=== PATIENT | male | born 1950 | race African-American/Black ===

== ENCOUNTER 2019-01-08 18:56 | Inpatient (IN) | payer OTHER ==
[~2019-01-08] VITALS: Ht 182.9 cm; Wt 144.7 kg
[2019-01-08 19:02] VITALS: BP 136/85
[2019-01-08 20:01] LABS: ABSOLUTE NEUTROPHILS 10.7 thou/uL (1.4-8.2); BASOPHILS 0.9 % (0.0-2.0); EOSINOPHILS 0.9 % (0.0-3.0); HEMATOCRIT 42.3 % (42.0-52.0); HEMOGLOBIN 13.5 gm/dL (14.0-18.0); LYMPHOCYTES 10.9 % (24.0-44.0); MCH 27.9 pg (26.0-34.0); MCHC 31.8 g/dL (28.0-37.0); MCV 87.8 fL (80.0-100.0); PLATELET COUNT 396 thou/uL (150-400); POLYS 78.3 % (36.0-66.0); RBC 4.82 mil/uL (4.50-6.00); RDW 15.6 % (10.5-14.5); WBC 13.7 thou/uL (4.0-11.0)
[2019-01-08 20:07] LABS: CALCIUM 9.5 mg/dL (8.5-10.1); CREATININE 1.3 mg/dL (0.7-1.3); POTASSIUM 3.5 mmol/L (3.5-5.1)
[2019-01-08 20:12] LABS: ALBUMIN 3.6 g/dL (3.4-5.0); DIRECT BILIRUBIN 0.2 mg/dL (<0.1-0.3); TOTAL BILIRUBIN 0.5 mg/dL (<0.1-1.0); TOTAL PROTEIN 7.6 g/dL (6.4-8.2)
[2019-01-08 21:10] LABS: URINE BILIRUBIN NEGATIVE (Negative); URINE BLOOD NEGATIVE (Negative); URINE CLARITY CLEAR; URINE COLOR YELLOW; URINE GLUCOSE-RANDOM* NEGATIVE (Negative); URINE KETONES NEGATIVE (Negative); URINE LEUKOCYTES-REFLEX NEGATIVE (Negative); URINE NITRITE-REFLEX NEGATIVE (Negative); URINE PROTEIN (DIPSTICK) NEGATIVE (Negative); URINE SPECIFIC GRAVITY <= 1.005 (1.005-1.035); URINE UROBILINOGEN 0.2 E.U./dl (0.2-1.0)
[2019-01-09 00:55] VITALS: BP 121/80
[2019-01-09 01:05] VITALS: BP 132/82
[2019-01-09 01:56] VITALS: BP 136/87
[2019-01-09] MEDS ORDERED: ALLOPURINOL 10100 M3 (03:41)
[2019-01-09] MEDS ORDERED: METFORMIN HCL500 M3 PO (03:43)
[2019-01-09] MEDS ORDERED: GLIPIZIDE 10 MG10 MG PO (03:45)
[2019-01-09] MEDS ORDERED: PRAVASTATIN SOD80 MG PO (03:51)
[2019-01-09] MEDS ORDERED: IRON325 M1 PO (03:53)
[2019-01-09] MEDS ORDERED: NORVASC 2.5 MG2.5 M1 PO (03:57)
[2019-01-09] MEDS ORDERED: TORSEMIDE20 MG PO (04:01)
[2019-01-09] MEDS ORDERED: CARVEDILOL12.5 MG PO (04:03)
[2019-01-09] MEDS ORDERED: OMEPRAZOLE40 MG (04:04)
[2019-01-09] MEDS ORDERED: LISINOPRIL2.5 MG PO (04:06)
--- NOTE | 2019-01-09 05:28 | NUR ---
PATIENT ARRIVED ON UNIT AT 0140 VIA CART FROM THE ED ACCOMPANIED BY ED PERSONEL. PATIENT ALERT AND ORIENTED X4. C/O PAIN. MED GIVEN. SLEPT LITTLE THIS SHIFT. UP TO BATHROOM W/O TROUBLE.
[2019-01-09 05:50] LABS: HEMATOCRIT 45.4 % (42.0-52.0); HEMOGLOBIN 13.8 gm/dL (14.0-18.0); MCH 27.2 pg (26.0-34.0); MCHC 30.4 g/dL (28.0-37.0); MCV 89.3 fL (80.0-100.0); RBC 5.08 mil/uL (4.50-6.00); RDW 15.7 % (10.5-14.5); WBC 14.5 thou/uL (4.0-11.0)
[2019-01-09 06:14] LABS: ALBUMIN 3.5 g/dL (3.4-5.0); CALCIUM 9.2 mg/dL (8.5-10.1); CREATININE 1.3 mg/dL (0.7-1.3); POTASSIUM 3.3 mmol/L (3.5-5.1); TOTAL BILIRUBIN 0.6 mg/dL (<0.1-1.0); TOTAL PROTEIN 7.5 g/dL (6.4-8.2)
[2019-01-09 07:47] VITALS: BP 140/81
--- NOTE | 2019-01-09 15:50 | NUR ---
INITIAL ASSESSMENT: Pt evaluated for d/c planning needs. Reviewed chart and spoke with nurse and pt. Pt is alert and oriented. Pt lives in house with son and was independent with ADL's. Pt has cane, but does not use. Pt has not had home health in the past. Pt plans on returning home on d/c from hospital. Will remain available to assist as needed.
[2019-01-09 16:59] VITALS: BP 102/66
--- NOTE | 2019-01-09 17:54 | NUR ---
ASSUMED CARE AROUND 0730. AXOX3. PERSISTENT ABDOMINAL PAIN. PAIN AND LOW POTASSIUM ADDRESSED TO AND MEW ORDERS RECEIVED. NO S/S ACUTE DISTRESS NOTED OR REPORTED AT THIS TIME. WILL CONT TO MONITOR FOR ANY CHANGES IN CONDITION.
[2019-01-10 04:00] VITALS: BP 111/61
--- NOTE | 2019-01-10 04:31 | NUR ---
PATIENT ALERT AND ORIENTED X4. SOME RESTLESNESS WITH PAIN. MEDICATED X2 DURING THE NIGHT AND PATIENT ABLE TO SLEEP. VOIDING PER URINAL. BS MONITORED PER ORDER. 02NC 3L HOWEVER, PATIENT REMOVES IT AT TIMES. WILL MONITOR. RESTING QUIETLY.
[2019-01-10 08:05] VITALS: BP 104/65
[2019-01-10 08:44] LABS: CALCIUM 8.8 mg/dL (8.5-10.1); CREATININE 1.5 mg/dL (0.7-1.3); POTASSIUM 3.7 mmol/L (3.5-5.1)
[2019-01-10 19:18] VITALS: BP 121/76
--- NOTE | 2019-01-10 19:51 | NUR ---
ASSUMED CARE OF PATIENT AT 0715, PATIENT ALERT AND ORIENTED X 4. PATIENT UP AD BRIGID IN HIS ROOM. PATIENT HAS C/O PAIN ALL DAY. THIS RN NOTIFIED DR NAPIER OF PATIENT PAIN NOT RELIEVED, HE STATED HE WAS NOT GOING TO ORDER MORE PAIN MEDS DUE TO NOT KNOWING WHAT IS CAUSING HIS PAIN, PATIENT HAS RECEIVED MORPHINE 4 MG IV AND OXYCODONE 2 TABLETS THIS SHIFT. THIS RN NOTIFIED DR NAPIER AGAIN DUE TO PATIENT STATING HE WAS GOING TO PASS OUT, RECEIVED ORDER TO DO CT SCAN OF ABD/PELVIS TO R/O RENAL STONES. PATIENT C/O NAUSEA AT DINNER TIME, ZOFRAN 4MG IV GIVEN, PATIENT HAS LEFT FOREARM IV IN PLACE, RECEIVE 1 IV ANTIBIOTIC THIS SHIFT. PATIENT VOIDS PER URINAL. NO BM THIS SHIFT. O2 AT 2 LITERS/NC IN PLACE, BUT PATIENT HAS TAKEN OFF AND THEN LABORED BREATHING NOTED, THIS RN INSTRUCTED PATIENT TO CONTINUE TO WEAR O2 AT ALL TIMES, HE VOICED UNDERSTANDING. THIS RN TOOK PATIENT DOWN AT [address] SCAN OF ABDOMEN/PELVIS. PATIENT REFUSED BATH THIS SHIFT, STATES HE TAKES HIS BATH AT NIGHT, BED LINEN CHANGED THIS SHIFT. ALSO NOTIFIED DR NAPIER OF PATIENT NEEDING NICOTINE PATCH, RECEIVED ORDER FOR NICOTINE PATCH 14MG WILL START IN AM. WILL CONTINUE TO MONITOR.
--- NOTE | 2019-01-11 02:35 | NUR ---
ASSUMED CARE OF PT @ 1900 PT SITTING UP IIN CHAIR. A&OX4 GOING FOR A CT DUE TO C/O. PT BACK FROM CT, PAIN MEDS GIVEN MORPINE AND OXYCODONE DURING THIS MATERIAL CUTTER SEE EMAR. BS CHECKED. PT DIDNT EAT DINNER TRAY DUE TO NO APPETITE AT THAT TIME. SANDWICH TRAY GIVEN LATER AT NIGHT AND PT EVA IT WELL. ON NC 3L OF O2. BIPAP ON AT NIGHT BUT REQUESTED TO BE OFF TONIGHT. WILL CONT WITH POC TILL EOS.
[2019-01-11 09:12] VITALS: BP 96/56
--- NOTE | 2019-01-11 12:16 | NUR ---
Assumed care of pt at 0700. Pt alert and oriented x4. On 4L O2. Wears C-pap at night. Upa d anderson. Pain controlled with prn pain meds. Antiemetic administered. IV antibiotics infusing. Call light within reach. Will continue to monitor.
--- NOTE | 2019-01-11 17:29 | NUR ---
ASSUMED CARE AT 1300. WENT FOR CT SCAN THIS AFTERNOON. REPORTED PAIN, PRN OXYCODONE GIVEN. FLUIDS STARTED, OXYGEN SATURATION WAS 93% ON ROOM AIR, SO KEPT ON RA. WILL COTINUE TO ASSESS AND ASSIST WITH ADLs NEEDED.
[2019-01-11 17:36] VITALS: BP 120/78
[2019-01-11 20:04] VITALS: BP 95/55
--- NOTE | 2019-01-12 04:12 | NUR ---
ASSSUMED CARE OF PT @1900 PT ASSESSED AT START OF SHIFT A&OX4. FLUIDS INFUSING PT ON RM/A O2 SAT ON PROBE IN THE 8O'S. PT PLACED ON 4L OF O2 AND CPAP PLACED ON. HOUSE SUP PRESENT, THIS NURSE CALLED SHIPYARD PAINTING SUPERVISOR FOR ORDERED DOSE OF XRAY DUE TO HISTORY OF COPD AND PT NOT ON O2 AT HOME. STAT XRAY ORDERED AND BX SCHEDULED. RESULT READ BACK TO SHIPYARD PAINTING SUPERVISOR PULMONARY EDEMA NOTED. FLUIDS STOPED AND ONETIME DOSE OF LASIX GIVEN. PAIN MEDS GIVEN FOR CONTROLLED PAIN. PT STABLE AND O2 SAT @98% ON NC 4L. WILL CONT TO MONITOR TILL EOS.
[2019-01-12 05:00] VITALS: BP 146/83
[2019-01-12 08:56] VITALS: BP 112/75
[2019-01-12 12:19] LABS: CREATININE 1.1 mg/dL (0.7-1.3); POTASSIUM 4.2 mmol/L (3.5-5.1)
[2019-01-12 16:27] VITALS: BP 117/71
--- NOTE | 2019-01-12 18:53 | NUR ---
PATIENT TO NUCLEAR MED VIA W/C FOR RENAL SCAN.
--- NOTE | 2019-01-12 18:54 | NUR ---
PATIENT UP TO CHAIR AFTER RETURNING FROM NUCLEAR MED, STAYED UP FOR DINNER AND RETURNED TO BED WITH CPAP IN PLACE. STATES THAT HE IS BREATHING BETTER. PAIN INITIALLY A 5/10 BUT NOW 7-8/10 GIVEN MORPHINE AND PERCOCET WITH MIN RELIEF. PATIENT AND FAMILY UPDATED TO POC AND REASSURANCE GIVEN. VERBALIZE UNDERSTANDING.
[2019-01-12 19:17] VITALS: BP 112/77
[2019-01-13 04:22] VITALS: BP 99/78
--- NOTE | 2019-01-13 05:28 | NUR ---
ASSUMED PT CARE ON 01/12/19. PT HAS COMPLAINTS OF FLANK PAIN. PT PREFERS PAIN MEDS RIGHT BEFORE BED. PT HAS BEEN UP WALKING AND USING THE URINAL. PT SLEEP LATER IN THE SHIFT. PT USES CPAP AT NIGHT.
[2019-01-13 06:22] LABS: HEMATOCRIT 37.6 % (42.0-52.0); HEMOGLOBIN 11.7 gm/dL (14.0-18.0); MCH 27.9 pg (26.0-34.0); MCHC 31.1 g/dL (28.0-37.0); MCV 89.9 fL (80.0-100.0); RBC 4.19 mil/uL (4.50-6.00); RDW 16.2 % (10.5-14.5); WBC 8.4 thou/uL (4.0-11.0)
[2019-01-13 06:40] LABS: CALCIUM 9.6 mg/dL (8.5-10.1); POTASSIUM 4.8 mmol/L (3.5-5.1)
[2019-01-13 07:00] VITALS: BP 140/89
--- NOTE | 2019-01-13 10:51 | NUR ---
Assess due to high BMI 42.8=extreme obesity. Admit with abdominal pain. Eating 50-90% meals. Hx DM, BG 112-150. Renal following. Pt out of room at time of visit. Based on chart review, low nutrition risk. Available for diet education if pt has questions or concerns.
--- NOTE | 2019-01-13 11:43 | 2DMMODE ---
[facility] [address] [place] [address] 2 D/M-MODE ECHOCARDIOGRAM Name: TRISH LEE Room #: 441-P ADM IN ..#: [id number] Admission: 01/09/19 Attend Phys: Jose E Gaxiola MD Discharge: Date of : 54 Report #: [id number] THIS REPORT FOR: //name// APPROVED REPORT Study performed: 01/13/2019 10:31:52 EXAM: Comprehensive 2D, Doppler, and color-flow Echocardiogram Patient Location: Echo lab Room #: [facility] Status: routine BSA: 2.59 HR: 83 bpm BP: 140/89 mmHg Rhythm: Atrial Fibrillation Other Information Study Quality: Adequate Technically limited study due to body habitus. Indications Question source of emboli. Valve source. Renal infarct. Hx: CHF, COPD, HTN, HLP, DM Echo Enhancing Agent Indication: Endocardial border delineation and Rule out shut. Agent(s) / Amount(s) Used: Agitated Saline X2 12 cc Optison 5 cc 2D Dimensions RVDd: 51.05 mm IVSd: 12.00 (7-11mm) LVOT Diam: 25.17 (18-24mm) LVDd: 63.00 mm PWd: 12.00 (7-11mm) Ascending Ao: 43.09 (22-36mm) LVDs: 54.03 (25-40mm) Aortic Root: 39.86 mm Volumes Left Atrial Volume (Systole) Single Plane 4CH: 121.32 mL Single Plane 2CH: 125.81 mL LA ESV Index: 50.00 mL/m2 Aortic Valve AoV Peak Emanuel.: 1.24 m/s [facility] [place] [address] 2 D/M-MODE ECHOCARDIOGRAM Name: TRISH LEE Room #: 441-P ADM IN ..#: [id number] Admission: 01/09/19 Attend Phys: Jose E Gaxiola MD Discharge: Date of : 54 Report #: [id number] AO Peak Gr.: 6.16 mmHg LVOT Max P.63 mmHg LVOT Max V: 0.95 m/s RODNEY Vmax: 3.80 cm2 Mitral Valve MV Decel. Time: 135.75 ms MV E Max Emanuel.: 1.28 m/s Pulmonary Valve PV Peak Emanuel.: 0.64 m/s PV Peak Gr.: 1.62 mmHg Tricuspid Valve TR Peak Emanuel.: 3.30 m/s RAP Estimate: 15.00 mmHg TR Peak Gr.: 43.00 mmHg PA Pressure: 58.00 mmHg Left Ventricle Left ventricle is moderately dilated. Regional wall motion is not well visualized. Mild concentric left ventricular hypertrophy. Left ventricular systolic function is moderately decreased. LVEF 40%. This study is not technically sufficient to allow evaluation of the LV diastolic function due to atrial fibrillation. Right Ventricle Right ventricle is not well visualized but appears dilated and mildly hypokinetic. Atria Left atrium is severely dilated. No shunting noted by contrast bubble injection. Right atrium is moderately dilated. Aortic Valve The aortic valve is mildly calcified. Mild to moderate aortic regurgitation. There is no aortic valvular stenosis. Mitral Valve Moderate mitral annular calcification. Moderate mitral regurgitation. No evidence of mitral valve stenosis. Tricuspid Valve Tricuspid valve is not well visualized but appears grossly normal. Mild tricuspid regurgitation. Estimated PAP is 55 mmHg. Pulmonic Valve Pulmonic valve is not well visualized. Mild pulmonic regurgitation. [facility] [address] [place] [address] 2 D/M-MODE ECHOCARDIOGRAM Name: TRISH LEE Room #: 441-P [facility] IN .R.#: [id number] Admission: 01/09/19 Attend Phys: Jose E Gaxiola MD Discharge: Date of : 54 Report #: [id number] [place]els Aortic root is mildly dilated. Ascending aorta is dilated (4.3cm). IVC is dilated and collapses <50% with inspiration. Pericardium There is no pericardial effusion. <Conclusion> Technically difficult study Left ventricular systolic function is moderately decreased. LVEF 40%. Both atria are dilated. No shunting noted by contrast bubble injection. The aortic valve is mildly calcified. Mild to moderate aortic regurgitation. Moderate mitral annular calcification. Moderate mitral regurgitation. Mild tricuspid regurgitation. Estimated pulmonary artery pressure of 55 mmHg. Ascending aorta is dilated (4.3cm). There is no pericardial effusion. <ELECTRONICALLY SIGNED> By: Lisandro Zepeda MD, FACC 01/13/19 1143 1143 1143 Lisandro Zepeda MD, FACC /INF
[2019-01-13 16:32] VITALS: BP 116/71
--- NOTE | 2019-01-13 16:44 | NUR ---
RECEIVED PHONE CALL FROM PT'S SON WHO HE LIVES WITH HIS DAD ASKING FOR A LETTER FROM THE DR THAT WOULD ALLOW HIM TO EXTRACT OPERATOR. WILL DISCUSS THIS WITH DR RICARDO TO SEE IF SHE WOULD BE WILLING TO DO THIS.
[2019-01-13 19:15] VITALS: BP 110/57
--- NOTE | 2019-01-13 20:33 | NUR ---
Assumed care of pt at 0700. Pt a&ox4. Up ad anderson. Pain controlled with prn pain meds. Cpap at night. Pt states he is feeling better. Call light within reach. Pt calls appropriately. Report given to yonatan HESS.
--- NOTE | 2019-01-14 01:36 | NUR ---
ASSESSMENT COMPLETED. PT IS ALERT AND ORIENTED.UP AD BRIGID. USING CPAP AT NOC WITH 02/4L/NOC. STILL C/O L FLANK PAIN-ALTERNATING BETWEEN OXYCODONE AND IV MORPHINE.PT CONTINUES ON STEROIDS.WILL CONTINUE WITH POC TILL EOS.
--- NOTE | 2019-01-14 07:51 | HC ---
[facility] [place] [address] CONSULTATION Name: TRISH LEE Room #: 441-P [facility] IN ..#: [id number] Admission: 01/09/19 Attend Phys: Jose E Gaxiola MD Discharge: Date of : 54 Report #: [id number] THIS REPORT FOR: //name// CC: Tahir Ritchie DO Jose E Gaxiola MD REASON FOR CONSULTATION: Right renal infarct, age indeterminate. HISTORY OF PRESENT ILLNESS: The patient is a very pleasant 68-year-old gentleman, who moved here from [place] in 05/2018. He was admitted for right middle lateral abdominal pain began 2 days prior to admission, described as sharp and rated a 9/10. Also, had had emesis. He had seen his PCP the week before. He had not had this difficulty before. Per other notes and discussion, he denied back pain, diarrhea, fever, shortness of breath, chest pain, or urinary frequency. I do note the patient was in the hospital at [facility], not too recently with obvious fairly significant GI bleed with bright red blood. Per his description, it sounds like they did an upper and lower endoscopy and also pill camera studies without finding a bleeding source. They told him he would likely need to have a bleeding scan done if he bled again to determine the source. It sounded like the surgery, but the bleeding stopped. Here, the patient had a CT abdomen with a question of a possible infarct in right renal cortex of the lower pole. UA was unremarkable for red cells and Dr. Reyes of Nephrology thought this was likely an old change, not a recent change. We were consulted because of hypercoag workup. 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 SOCIAL HISTORY: History of marijuana use, there may be a question of cocaine use in the past, also current every day smoker. 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 He has family here in town. MEDICATIONS: At home had included allopurinol, metformin, glipizide, pravastatin, iron, amlodipine, torsemide, carvedilol, omeprazole, lisinopril. Here in the hospital, his recent medications include atorvastatin 40 at bedtime, ipratropium respiratory therapy q.4 hours while awake, methylprednisolone 62.5 IV b.i.d., carvedilol 3.125 b.i.d., nicotine patch 14 mg daily, pantoprazole 40 at bedtime, electrolyte replacement program, iron sulfate 325 daily, heparin 5000 units b.i.d., Senokot-S 2 tabs b.i.d., insulin on a sliding scale basis, morphine p.r.n., MiraLax p.r.n. [address] [address] CONSULTATION Name: TRISH LEE Room #: 441-P [facility] IN M.R.#: [id number] Admission: 01/09/19 Attend Phys: Jose E Gaxiola MD Discharge: Date of : 54 Report #: [id number] PHYSICAL EXAMINATION: GENERAL: The patient appears his stated age. VITAL SIGNS: His height is 5 feet 11 or 6 feet which is 180 or 183 cm. Weight is 316 pounds, which is 143.3 kilograms. Blood pressure is 140/89, O2 sat 95%, respirations 18, pulse , afebrile. MOOD: The patient is alert and pleasant, conversant. NEUROLOGIC: Speech and thought pattern normal. Moving all extremities. LUNGS: Appear to be clear to auscultation though slightly distant. HEART: Regular rate. LYMPHATICS: No enlarged lymph nodes in the supraclavicular, cervical, axillary region. SKIN: Dry and intact. ABDOMEN: Obese. No organomegaly. BACK: No significant pain on percussion. EXTREMITIES: There may be some trace edema, not much. ASSESSMENT AND PLAN: 1. Right renal infarct, age indeterminate, may be related to and also could be related to possible other medications in the past. We will do hypercoag workup including protein C, protein S, factor V Leiden, prothrombin gene mutation, cardiolipin antibodies, beta 2 glycoprotein antibodies, and lupus anticoagulant panel. We will need to be very careful given the patient's gastrointestinal bleed history about any anticoagulation. We would hope that if ____ may be provoked and could be related to , strongly encouraged to stop. We will also check echocardiogram. 2. Tobacco use. Encouraged cessation. 3. History of recent gastrointestinal bleed. Defer to others. 4. Chronic obstructive pulmonary disease, steroids and aerosols per others. 5. Diabetes. Management per others including oral agents and insulin. 6. Questionable heart failure. Defer to others. 7. Obstructive sleep apnea, CPAP per others. 8. Hyperlipidemia. Meds per others. We will follow. <ELECTRONICALLY SIGNED> By: Diony Moore MD 01/14/19 0751 [id number] 2038 Diony Moore MD /leanna
[2019-01-14 08:14] VITALS: BP 156/101
[2019-01-14 09:27] LABS: CALCIUM 10.4 mg/dL (8.5-10.1); POTASSIUM 5.3 mmol/L (3.5-5.1)
[2019-01-14 13:13] LABS: HEMATOCRIT 41.3 % (42.0-52.0); HEMOGLOBIN 12.7 gm/dL (14.0-18.0); MCHC 30.8 g/dL (28.0-37.0)
[2019-01-14 13:18] LABS: MCH 27.6 pg (26.0-34.0); MCV 89.6 fL (80.0-100.0); RBC 4.61 mil/uL (4.50-6.00); RDW 16.4 % (10.5-14.5); WBC 15.4 thou/uL (4.0-11.0)
[2019-01-14 14:00] LABS: ABSOLUTE NEUTROPHILS 14.5 thou/uL (1.4-8.2)
[2019-01-14 14:01] LABS: ANISOCYTOSIS 1+; PLATELET COUNT 469 thou/uL (150-400)
--- NOTE | 2019-01-14 14:42 | NUR ---
Pt on 4 liters of o2 and does not have it at home. Cardiology consult pending. Renal and Hem/Onc following. Dc timeframe uncertain. Will follow for possible home o2 at dc. Pt up ad anderson in his room.
--- NOTE | 2019-01-14 15:56 | NUR ---
RECEIVED CALL FROM PT'S SON ASKING TO SEE IF THE DR WOULD WRITE A LETTER ALLOWING HIM TO MORTGAGE LOAN COMPUTATION CLERK SO THAT HE COULD BE THERE TO MONITOR PT'S DIET, MEDS AND IF ANY EMERGENCIES AROSE HE WOULD BE IN A CLOSER PROXIMITY TO ASSIST. HE WOULD BE ABLE TO HELP WITH DECISION MAKING. DR RICARDO DOES NOT FEEL COMFORTABLE DOING THIS & REQUESTS THAT SON FOLLOW-UP WITH PT'S PCP. MESSAGE LEFT TO INFORM SON.
[2019-01-14 16:25] VITALS: BP 137/77
--- NOTE | 2019-01-14 18:13 | NUR ---
ASSUMED CARE OF PT AT 0700. PT COMPLIANED OF LEFT EYE PAIN AND THE INABILITY TO SEE CLEARLY OUT OF THE L EYE. PT IS ON 4.0 LITERS OF O2. PER DOCTOR PT TRANSFERED TO CCU FOR CARDIOLOGY. FALL PRECAUTIONS IN PLACE. BED IN LOWEST POSITION AND CALL LIGHT WITHIN REACH. WILL CONTINUE TO MONITOR THE PT.
--- NOTE | 2019-01-14 18:35 | NUR ---
Pt continuing to report pain in this left eye. Call placed to Dr Gee and orders received. Warm moist cloth to left eye for comfort. Also reports blurred vision left eye and discomfort right lower quadrant of abdoment.
[2019-01-14 19:56] VITALS: BP 142/89
[2019-01-15 00:06] VITALS: BP 133/86
[2019-01-15 04:36] VITALS: BP 146/96
[2019-01-15 05:49] LABS: CALCIUM 9.7 mg/dL (8.5-10.1); CREATININE 1.1 mg/dL (0.7-1.3); POTASSIUM 5.1 mmol/L (3.5-5.1)
[2019-01-15 05:55] LABS: % SATURATION 10 % (20-39); IRON 37 ug/dL (65-175); TIBC 354 ug/dL (250-450)
--- NOTE | 2019-01-15 07:09 | NUR ---
ASSUMED PT CARE AT 1900. VSS. PT A&0X4. COMPLAINED OF PAIN IN RLQ AND EYES, PAIN MED GIVEN PER MAR. PT'S HR IS USUALLY UNDER 100 WHEN HE IS RESTING OR LAYING DOWN IN BED. HOWVER, WHEN HE GETS UP TO USE THE URINAL, HE CAN GET UP TO 160s. SEE GRAPHICS IN CHART. PT IS STILL IN AFIB ON THE MONITOR. HOWEVER PT IS ASYMPTOMATIC. STABLE, NO FURTHER COMPLAINTS THROUGH THE NIGHT, WILL CONTINUE TO MONITOR PER POC.
[2019-01-15 07:45] VITALS: BP 133/77
--- NOTE | 2019-01-15 08:34 | EKG ---
[address] [place] [address] ELECTROCARDIOGRAM REPORT Name: TRISH LEE Room #: 214-P ADM IN M.R.#: [id number] Admission: 01/09/19 Attend Phys: Jose E Gaxiola MD Discharge: Date of : 54 Report #: [id number] THIS REPORT FOR: //name// [facility] Test Date: 2019-01-14 Test Time: 09:26:09 Pat Name: TRISH LEE Department: Room: 214 Gender: M Client Service Professional: Home MATA : 1950 Requested By: Kristine Santana Order Number: [id number] MD: Lisandro Zepeda Measurements Intervals [place] Rate: 93 P: RI: QRS: -44 QRSD: 133 T: 112 QT: 384 QTc: 478 Interpretive Statements Atrial fibrillation Ventricular premature complex Left bundle branch block No previous ECG available for comparison Electronically Signed On 01-15-2019 8:34:03 CDT by Lisandro Zepeda [email or web address] <ELECTRONICALLY SIGNED> By: Lisandro Zepeda MD, [facility] 01/15/19 0834 5 Lisandro Zepeda MD, FACC /EPI
[2019-01-15 12:11] VITALS: BP 146/97
[2019-01-15 16:28] VITALS: BP 131/72
--- NOTE | 2019-01-15 17:01 | NUR ---
ASSUMED CARE PT AT SHIFT CHANGE. ASSESSMENTS CHARTED. MEDS GIVEN PER MAY. PT ALERT AND ORIENTED, VSS, UP WITH SUPERVISION TOLERATING WELL. O2 SATS WNL ON 2L O2. HR ELEVATED WITH ACTIVITY--CARDIOLOGY AWARE. LASIX ORDERED AND PT EXPRESSES THAT HE IS BREATHING BETTER. DIURESING APPROPRIATELY. NO C/O PAIN, DENIES NEEDS AT THIS TIME. WILL CONT TO MONITOR.
[2019-01-15 20:00] VITALS: BP 162/87
[2019-01-16 00:10] VITALS: BP 116/67
[2019-01-16 02:30] VITALS: BP 126/74
--- NOTE | 2019-01-16 05:17 | NUR ---
SHIFT NOTE: PATIENT ALERT AND ORIENTED AND ABLE TO COMMUNICATE NEEDS. DENIES PAIN OR DISCOMFORT. C-PAP AT BEDTIME. CONCERN WITH BLOOD SUGAR IN THE 70'S AND TREATMENT PER THE ORDER WITH EFFECT. VITAL SIGN WITH NO MAJOR CONCERN. HOURLY ROUNDING. CALL LIGHT AND PERSONAL ITEMS WITHIN REACH. WILL CONTINUE WITH CURRENT POC AND TO MONITOR.
[2019-01-16 08:17] VITALS: BP 137/86
[2019-01-16] MEDS ORDERED: NICOTINE TRANSD14 M1 TRANSDERM (12:24)
[2019-01-16] MEDS ORDERED: BENICAR40 MG PO (12:24)
[2019-01-16] MEDS ORDERED: CARVEDILOL12.5 MG PO (12:24)
[2019-01-16] MEDS ORDERED: PROAIR HFA8.5 GM INH (12:24)
[2019-01-16] MEDS ORDERED: MIRALAX17 GM PO (12:24)
[2019-01-16] MEDS ORDERED: PERCOCET 5-3251 EACH PO (12:24)
[2019-01-16] MEDS ORDERED: ACETAMINOPHEN325 M1 PO (12:24)
[2019-01-16] MEDS ORDERED: GLIPIZIDE 10 MG10 MG PO (12:55)
[2019-01-16 13:16] VITALS: BP 137/86
[2019-01-16 14:44] VITALS: BP 137/86
--- NOTE | 2019-01-16 14:44 | NUR ---
PT CARE ASSUMED APPROX 0700. ASSESSMENTS CHARTED. PT DENIES PAIN AND SOA. VSS. UP WITH STEADY GAIT. O2 SAT HAS MAINTAINED WITH EXERTION AND EXERCISE. PT TO DISCHARGE AT THIS TIME. DISCHARGE EDUCATION DONE WITH PT. HE DENIES QUESTIONS OR CONCERNS REGARDING POST HOSPITAL CARES AND F/U. BELONGINGS IN PT POSSESSION. IV OUT, TELE BOX OFF. HOSPITAL STAFF TO ESCORT PT OUT TIMELY.
--- NOTE | 2019-01-16 14:53 | NUR ---
Pt dcing home today. Weaned off o2 and ex sats are wnl. HH RN and PT abdirahman recommended. Pt is agreeable and denies agency preference. Referral called and faxed to [facility] for start of care this weekend. Pt's son taking him home this afternoon. Care team updated.
--- NOTE | 2019-01-22 07:41 | HC ---
[facility] [place] [address] CONSULTATION Name: TRISH LEE Room #: 214-P [facility] IN ..#: [id number] Admission: 01/09/19 Attend Phys: Jose E Gaxiola MD Discharge: 01/16/19 Date of : 54 Report #: [id number] THIS REPORT FOR: //name// CC: Alexandre Gaxiola REASON FOR CONSULTATION: Potential renal infarct. HISTORY OF PRESENT ILLNESS: This is a 68-year-old with extensive past medical history including diabetes mellitus, hypertension, hyperlipidemia and COPD. He presented with diffuse abdominal pain for 2 days. This was associated with emesis. The patient also reported to some nausea. No hematuria. No fever. No previous similar episodes. CT showed an abnormal appearance of the right lower pole of the kidney. Abdominal ultrasound was nonconclusive. Repeat CT angiogram showed a potential mid to inferior lesion of the right kidney consistent with a renal infarct. The patient's creatinine on presentation was within normal range. He had a completely clear urinalysis. He does not recall any previous similar events. He does not recall any family history of hypercoagulable condition. PAST MEDICAL HISTORY: 1. Hypertension. 2. Hyperlipidemia. 3. Diabetes mellitus. 4. Chronic obstructive pulmonary disease. 5. Lower gastrointestinal bleeding. SOCIAL HISTORY: He uses marijuana. He also smokes cigarettes. ALLERGIES: None. MEDICATIONS: 1. Glipizide. 2. Metformin. 3. Torsemide. 4. Carvedilol. 5. Omeprazole. 6. Lisinopril. REVIEW OF SYSTEMS: GENERAL: No fever or chills. CARDIOVASCULAR: No chest pain or palpitation. PULMONARY: No cough or hemoptysis. GASTROINTESTINAL: No nausea or vomiting. GENITOURINARY: No frequency, no urgency. PHYSICAL EXAMINATION: [facility] [address] [place] [address] CONSULTATION Name: TRISH LEE Room #: 214-P [facility] IN [facility].#: [id number] Admission: 01/09/19 Attend Phys: Jose E Gaxiola MD Discharge: 01/16/19 Date of : 54 Report #: [id number] GENERAL: He is alert and oriented, in no apparent distress. VITAL SIGNS: Pulse rate is 95, temperature is 37, blood pressure is 146/83. HEAD AND NECK: No jugular venous distention. CHEST: No crackles. CARDIOVASCULAR: Regular with no rub detected. ABDOMEN: Soft, nontender. LOWER EXTREMITIES: Trace edema. LABORATORY VALUES: Reviewed. Sodium was 139, BUN is 20, creatinine is 1.5. IMAGING: Reviewed. ASSESSMENT, IMPRESSION AND PLAN: 1. Diabetes mellitus. 2. Hypertension. 3. Potential right lower pole kidney infarct. This seems to be an old infarct if it were to be a true infarct given the negative UA and the normal kidney function on presentation. There is no need for any further contrasted studies including an angiogram. If we were to investigate that, nuclear scan would be the most appropriate. Relate to me any family history of hypercoagulable condition, he is also not aware of any personal history of hypercoagulable condition. I would defer to ____ the Hematology team or not regarding hypercoagulable workup. <ELECTRONICALLY SIGNED> By: Tahir Reyes MD 01/22/19 0741 0750 1148 Tahir Reyes MD /nt
== END 2019-01-16 15:49 | disposition home health service (06) | DRG 698 ==
LOC: ER 18:56 → EROBS 01-09 00:23 → 4S 01-09 00:23 → 2N 01-14 15:56 → ENTRNSPT 01-16 15:38 → EDTRNSPTSTS 01-16 15:40 → 2N 01-16 15:49
PROVIDERS: Internal Medicine; Internal Medicine Gastroenterology; Internal Medicine Hematology & Oncology; Nurse Practitioner; Nurse Practitioner Adult Health; Nurse Practitioner Family; ADMIT Hospitalist
PROC: 5A09357 Assistance with Respiratory Ventilation, Less than 24 Consecutive Hours, Continuous Positive Airway Pressure (ICD-10-PCS; principal; 2019-01-09)
PROC: 5A09357 Assistance with Respiratory Ventilation, Less than 24 Consecutive Hours, Continuous Positive Airway Pressure (ICD-10-PCS; 2019-01-10)
PROC: 5A09357 Assistance with Respiratory Ventilation, Less than 24 Consecutive Hours, Continuous Positive Airway Pressure (ICD-10-PCS; 2019-01-11)
PROC: 5A09357 Assistance with Respiratory Ventilation, Less than 24 Consecutive Hours, Continuous Positive Airway Pressure (ICD-10-PCS; 2019-01-12)
PROC: 5A09357 Assistance with Respiratory Ventilation, Less than 24 Consecutive Hours, Continuous Positive Airway Pressure (ICD-10-PCS; 2019-01-13)
PROC: 5A09357 Assistance with Respiratory Ventilation, Less than 24 Consecutive Hours, Continuous Positive Airway Pressure (ICD-10-PCS; 2019-01-14)
PROC: 5A09357 Assistance with Respiratory Ventilation, Less than 24 Consecutive Hours, Continuous Positive Airway Pressure (ICD-10-PCS; 2019-01-15)
PROC: 5A09357 Assistance with Respiratory Ventilation, Less than 24 Consecutive Hours, Continuous Positive Airway Pressure (ICD-10-PCS; 2019-01-16)
DX: N28.0 Ischemia and infarction of kidney (principal); J96.21 Acute and chronic respiratory failure with hypoxia; N17.9 Acute kidney failure, unspecified; J44.1 Chronic obstructive pulmonary disease with (acute) exacerbation; I42.8 Other cardiomyopathies; K92.2 Gastrointestinal hemorrhage, unspecified; I50.9 Heart failure, unspecified; E78.00 Pure hypercholesterolemia, unspecified; F17.210 Nicotine dependence, cigarettes, uncomplicated; E11.9 Type 2 diabetes mellitus without complications; I48.0 Paroxysmal atrial fibrillation; I27.20 Pulmonary hypertension, unspecified; K59.00 Constipation, unspecified; I08.1 Rheumatic disorders of both mitral and tricuspid valves; I71.4 Abdominal aortic aneurysm, without rupture; E66.9 Obesity, unspecified; E78.5 Hyperlipidemia, unspecified; G47.33 Obstructive sleep apnea (adult) (pediatric); I11.0 Hypertensive heart disease with heart failure; F14.10 Cocaine abuse, uncomplicated; E11.649 Type 2 diabetes mellitus with hypoglycemia without coma; Z79.84 Long term (current) use of oral hypoglycemic drugs; Z79.899 Other long term (current) drug therapy; Z86.73 Personal history of transient ischemic attack (TIA), and cerebral infarction without residual deficits; Z99.81 Dependence on supplemental oxygen; Z71.6 Tobacco abuse counseling
CPT/HCPCS: 10081; 10194; 10195

== ENCOUNTER → 2019-03-23 | Outpatient (CLI) | payer OTHER ==
[~2019-03-23] MED LIST: ACETAMINOPHEN325 M1 PO; ALLOPURINOL 10100 M3; BENICAR40 MG PO; CARVEDILOL12.5 MG PO; GLIPIZIDE 10 MG10 MG PO; IRON325 M1 PO; IRON325 PO; KLOR-CON M2020 MEQ PO; LISINOPRIL2.5 MG PO; METFORMIN HCL500 M3 PO; MIRALAX17 GM PO; NICOTINE TRANSD14 M1 TRANSDERM; NORVASC 2.5 MG2.5 M1 PO; NORVASC10 MG PO; OMEPRAZOLE40 MG; PERCOCET 5-3251 EACH PO; PRAVASTATIN SOD80 MG PO; PROAIR HFA8.5 GM INH; TORSEMIDE20 MG PO; XARELTO20 MG PO
== END ==
LOC: SJCVC 12:54
DX: I48.91 Unspecified atrial fibrillation (principal); I45.4 Nonspecific intraventricular block; R94.31 Abnormal electrocardiogram [ECG] [EKG]; R55 Syncope and collapse; I11.0 Hypertensive heart disease with heart failure; I50.9 Heart failure, unspecified; J44.9 Chronic obstructive pulmonary disease, unspecified; E78.5 Hyperlipidemia, unspecified; F17.210 Nicotine dependence, cigarettes, uncomplicated; E66.9 Obesity, unspecified; Z98.890 Other specified postprocedural states; Z79.899 Other long term (current) drug therapy

== ENCOUNTER 2019-03-31 09:28 | Inpatient (IN) | payer OTHER ==
[~2019-03-31] VITALS: Ht 182.9 cm; Wt 141.5 kg
[~2019-03-31 09:28] MED LIST changes: -IRON325 PO; -KLOR-CON M2020 MEQ PO; -NORVASC10 MG PO; -XARELTO20 MG PO
[2019-03-31 09:30] VITALS: BP 135/76
[2019-03-31 10:14] LABS: ABSOLUTE NEUTROPHILS 8.2 thou/uL (1.4-8.2); EOSINOPHILS 1.7 % (0.0-3.0); HEMOGLOBIN 13.6 gm/dL (14.0-18.0); MCH 29.7 pg (26.0-34.0); MCHC 31.7 g/dL (28.0-37.0); MCV 93.9 fL (80.0-100.0); MONOCYTES 7.5 % (1.0-8.0); PLATELET COUNT 388 thou/uL (150-400); POLYS 78.8 % (36.0-66.0); RBC 4.58 mil/uL (4.50-6.00); RDW 18.9 % (10.5-14.5); WBC 10.4 thou/uL (4.0-11.0)
[2019-03-31 10:22] LABS: ANION GAP 7 mmol/L (7-16); BUN 15 mg/dL (7-18); CALCIUM 9.8 mg/dL (8.5-10.1); CHLORIDE 103 mmol/L (98-107); CO2 33 mmol/L (21-32); CREATININE 1.1 mg/dL (0.7-1.3); GLUCOSE 96 mg/dL (74-106); POTASSIUM 4.1 mmol/L (3.5-5.1); SODIUM 143 mmol/L (136-145)
[2019-03-31 10:31] LABS: TROPONIN-I <0.06 ng/mL (<0.06)
[2019-03-31 10:54] LABS: ANISOCYTOSIS SLIGHT; POIKILOCYTOSIS SLIGHT
[2019-03-31 11:40] VITALS: BP 133/81
--- NOTE | 2019-03-31 14:00 | 2DMMODE ---
[facility] [place] [address] 2 D/M-MODE ECHOCARDIOGRAM Name: TRISH LEE Room #: 170-1 ADM IN M.R.#: [id number] Admission: 03/31/19 Attend Phys: Neville Dill Discharge: Date of : 54 Report #: [id number] THIS REPORT FOR: //name// APPROVED REPORT Study performed: 03/31/2019 13:09:45 EXAM: Limited 2D, Doppler, and color-flow Echocardiogram Patient Location: Echo lab Room #: ER Status: routine BSA: 2.58 HR: 86 bpm BP: 133/81 mmHg Rhythm: Atrial Fibrillation Other Information Study Quality: Adequate Technically limited study due to morbid obesity. Indications Dyspnea Hx: CHF, Afib, COPD, HTN, HLP, DM. (Complete echo done 01/13/19) Echo Enhancing Agent Indication: Endocardial border delineation Agent(s) / Amount(s) Used: Optison 4 cc 2D Dimensions IVSd: 12.44 (7-11mm) LVDd: 61.85 mm PWd: 12.32 (7-11mm) LVDs: 51.20 (25-40mm) Aortic Valve AoV Peak Emanuel.: 1.25 m/s AO Peak Gr.: 6.25 mmHg Mitral Valve MV Decel. Time: 140.70 ms MV E Max Emnauel.: 1.40 m/s Tricuspid Valve TR Peak Emanuel.: 3.48 m/s RAP Estimate: 15.00 mmHg [facility] [address] [place] [address] 2 D/M-MODE ECHOCARDIOGRAM Name: TRISH LEE Room #: 170-1 ADM IN M.R.#: [id number] Admission: 03/31/19 Attend Phys: Neville Dill Discharge: Date of : 54 Report #: [id number] TR Peak Gr.: 49.00 mmHg PA Pressure: 64.00 mmHg Left Ventricle Left ventricle is dilated. Mild concentric left ventricular hypertrophy. Left ventricular systolic function is moderately decreased. LVEF is 35-40%. This study is not technically sufficient to allow evaluation of the LV diastolic function due to atrial fibrillation. Right Ventricle Right ventricle is dilated. Right ventricle is hypokinetic. Atria Left atrium is dilated. Right atrium is dilated. Aortic Valve Aortic valve is mildly calcified. Mild to moderate aortic regurgitation. There is no aortic valvular stenosis. Mitral Valve Moderate mitral annular calcification. Moderate mitral regurgitation. Tricuspid Valve Tricuspid valve is not well visualized. Mild to moderate tricuspid regurgitation. Great Vessels IVC is dilated and collapses <50% with inspiration. Pericardium There is no pericardial effusion. <Conclusion> Left ventricle is dilated. Mild concentric left ventricular hypertrophy. Left ventricular systolic function is moderately decreased. LVEF is 35-40%. Right ventricle is dilated. Left atrium is dilated. Mild to moderate aortic regurgitation. [facility] [address] [place] [address] 2 D/M-MODE ECHOCARDIOGRAM Name: TRISH LEE Room #: 170-1 ADM IN M.R.#: [id number] Admission: 03/31/19 Attend Phys: Neville Dill Discharge: Date of : 54 Report #: [id number] Moderate mitral regurgitation. Mild to moderate tricuspid regurgitation. <ELECTRONICALLY SIGNED> By: Isaiah Mendoza MD 03/31/19 1359 1359 135 Isaiah Mendoza MD /INF
[2019-03-31 15:00] VITALS: BP 167/96
[2019-03-31 15:30] VITALS: BP 127/79
--- NOTE | 2019-03-31 19:04 | NUR ---
NEW PATIENT FOR CHF EXACERBATION ARIVED 1500. ALERTX4 FROM HOME WITH FAMILY, SOB WITH ACTIVITY REQUIRES HOB ELEVATED FOR SLEEPING, DENIES CHEST PAIN, DENIES GENERAL PAIN. LUNGS COARSE ON 2L NASAL CANNULA, INDEPENDENT IN ROOM, LAST BM TODAY CONTINENT, HOME MEDS UPDATED. CONSENTS SIGHTN, AFIB ON TELE. ADMISSION HISTORY AND ASSESMENT COMPLETED. CALL LIGHT IN REACH.
[2019-03-31 19:35] VITALS: BP 114/64
[2019-04-01 00:10] VITALS: BP 109/71
[2019-04-01 04:45] VITALS: BP 108/70
--- NOTE | 2019-04-01 05:10 | NUR ---
ASSUMED PT CARE AT 1900. PT IS ALERT AND ORIENTED WITH NO SIGN OF DISTRESS NOTED IN PT. PT IS STABLE. SITTING IN CHAIR. PT IS ON OXYGEN. DENIES ANY PAIN. ASSESSMENT COMPLETED AND DOCUMENTED. SCHEDULED MEDS ADMINISTERED TO PT. CONTINUE TO MONITOR BREATHING THROUGHOUT THE NIGHT. DENIES ANY FURTHER NEEDS AT THIS TIME.
[2019-04-01 07:30] VITALS: BP 123/70
--- NOTE | 2019-04-01 10:13 | NUR ---
Met with patient she admits with N/V. Patient resides at home with aunt and her partner. All needs on one level. Someone is with patient during the day. Patient was at [facility]. She rec [facility] and transferred to [facility] at nd from hospital. She subsequently dc home with HH care LOBO/Meño, has been home approx one week. She dializes at [facility]. She reports nephrology phys just told her she may no longer need dialysis. She is hopeful to dc home with no dialysis needs. She has all DME from [facility] as needed. W/C walker and reports no need for sliding board. Patient plans dc home with HH once stable. Notified LOBO/Meño patient inpatient.
[2019-04-01 11:50] VITALS: BP 104/64
--- NOTE | 2019-04-01 16:54 | NUR ---
met with patient who admits with CHF. Patient reports he lives with son and family. 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 He uses a CPAP at night. Patient reports prescriptions through [facility]. he reports all reasonable except xxeralto. He reports he had initial 30 day card cvoerage but no coverage after and it was $1400 he could not afford. Gave patient 30 day copay card to take with him and discuss with Dr Mendoza in am. Patient anticipated home in am. Reports independent with adls and anticipates no needs at [facility]. His PCP is Dr Fagan. casemgt following.
[2019-04-01 17:20] VITALS: BP 119/80
--- NOTE | 2019-04-01 18:38 | NUR ---
ASSUMED CARE OF PT AT SHIFT CHANGE. ASSESSMENTS CHARTED. MEDS GIVEN PER MAY. VSS. PT A&OX4. NO C/O PAIN OR SOA. PT ON 2L NC. PLAN FOR PART 2 OF STRESS TEST IN MORNING. NO CAFFIENE AFTER 1999. NPT AFTER . WILL CONTINUE TO MONITOR AND FOLLOW POC
[2019-04-01 19:03] VITALS: BP 99/59
--- NOTE | 2019-04-02 04:44 | NUR ---
ASSUMED PT CARE AT 1900. PT IS SLEEPING UPON ARRIVAL TO ROOM. NO SIGN OF DISTRESS NOTED IN PT. ASSESSMENT COMPLETED AND DOCUMENTED. PT IS NPO AFTER MIDNIGHT FOR A SCHEDULED STRESS TEST. PT AWARE. DENIES ANY PAIN, NO FURTHER NEEDS REQUESTED, CONINUE TO MONITOR.
[2019-04-02 07:50] VITALS: BP 108/64
[2019-04-02 12:00] VITALS: BP 117/67
[2019-04-02 16:00] VITALS: BP 126/83
[2019-04-02 16:05] LABS: CALCIUM 9.5 mg/dL (8.5-10.1); CREATININE 1.1 mg/dL (0.7-1.3); POTASSIUM 4.2 mmol/L (3.5-5.1)
--- NOTE | 2019-04-02 17:07 | EKG ---
[address] [address] ELECTROCARDIOGRAM REPORT Name: ROSATRISH Room #: 206-P ADM IN M.R.#: [id number] Admission: 03/31/19 Attend Phys: Delfina Barakat MD Discharge: Date of : 54 Report #: [id number] THIS REPORT FOR: //name// [facility] ED Test Date: 2019-03-31 Test Time: 09:36:09 Pat Name: TRISH LEE Department: Room: 206 Gender: M Film Or Videotape Editor: andrea : 1950 Requested By: David Casas Order Number: [id number] MD: Gary Tejada Measurements Intervals [place] Rate: 86 P: ND: QRS: -40 QRSD: 138 T: 114 QT: 421 QTc: 504 Interpretive Statements Atrial fibrillation Nonspecific IVCD with LAD LVH with secondary repolarization abnormality Compared to ECG 01/14/2019 09:26:09 Electronically Signed On 04-02-2019 17:06:50 SENIOR RESEARCH EXECUTIVE by Gary Tejada [email or web address] <ELECTRONICALLY SIGNED> By: Gary Tejada MD 04/02/19 1706 D: 01/935 5 Gary Tejada MD /EVIE
--- NOTE | 2019-04-02 17:37 | NUR ---
ASSUMED CARE OF PT AT SHIFT CHANGE. ASSESSMENTS CHARTED. MEDS GIVEN PER MAR. VSS. PT A&OX4. NO C/O PAIN OR SOA. PT UP AD BRIGID. STRESS TEST COMPLETE THIS AM. PLAN TO DIURESE AT LEAST ONE MORE DAY. WILL CONTINUE TO MONITOR AND FOLLOW POC.
[2019-04-02 20:32] VITALS: BP 108/64
--- NOTE | 2019-04-03 05:07 | NUR ---
ASSUMED PT CARE AT 1900. PT IS SLEEPING UPON ARRIVAL TO ROOM. NO SIGN OF DISTRESS NOTED. VITAL SIGN STABLE. DENIES ANY PAIN. ASSESSMENT COMPLETED AND DOCUMENTED. DENIES ANY FURTHER NEEDS AT THIS TIME.
[2019-04-03 05:08] VITALS: BP 126/66
[2019-04-03 05:10] LABS: CALCIUM 9.4 mg/dL (8.5-10.1); CREATININE 1.2 mg/dL (0.7-1.3); POTASSIUM 3.9 mmol/L (3.5-5.1)
[2019-04-03 08:05] VITALS: BP 127/80
[2019-04-03] MEDS ORDERED: XARELTO20 MG PO (09:05)
[2019-04-03] MEDS ORDERED: TORSEMIDE20 MG PO (09:05)
[2019-04-03] MEDS ORDERED: NORVASC10 MG PO (09:05)
[2019-04-03] MEDS ORDERED: KLOR-CON M2020 MEQ PO (09:05)
[2019-04-03 11:10] VITALS: BP 93/65
[2019-04-03] MEDS ORDERED: IRON325 PO (12:59)
[2019-04-03 14:01] VITALS: BP 93/65
--- NOTE | 2019-04-03 15:19 | NUR ---
ASSUMED CARE OF PT AT SHIFT CHANGE. ASSESSMENTS CHARTED. MEDS GIVEN PER MAY. VSS. PT A&OX4. NO C/O PAIN OR SOA. DISCHARGE ORDERS AND INSTRUCTIONS COMPLETE. TELE AND IV DC'D. THIS NURSE WALKED PT TO [facility] TO SON WAITING WITH CAR.
[2019-04-03 15:20] VITALS: BP 93/65
== END 2019-04-03 14:55 | disposition home health service (06) | DRG 291 ==
LOC: ER 09:28 → EROBS 12:11 → 2N 12:11
PROVIDERS: Emergency Medicine; Internal Medicine Cardiovascular Disease; ADMIT Hospitalist
DX: I11.0 Hypertensive heart disease with heart failure (principal); J96.01 Acute respiratory failure with hypoxia; Z68.41 Body mass index [BMI] 40.0-44.9, adult; N28.0 Ischemia and infarction of kidney; I50.43 Acute on chronic combined systolic (congestive) and diastolic (congestive) heart failure; I42.8 Other cardiomyopathies; E78.5 Hyperlipidemia, unspecified; J44.9 Chronic obstructive pulmonary disease, unspecified; E78.00 Pure hypercholesterolemia, unspecified; E11.9 Type 2 diabetes mellitus without complications; F17.210 Nicotine dependence, cigarettes, uncomplicated; G47.33 Obstructive sleep apnea (adult) (pediatric); I48.0 Paroxysmal atrial fibrillation; M10.9 Gout, unspecified; I27.21 Secondary pulmonary arterial hypertension; E66.01 Morbid (severe) obesity due to excess calories; E87.6 Hypokalemia; Z90.49 Acquired absence of other specified parts of digestive tract; Z90.89 Acquired absence of other organs; Z79.01 Long term (current) use of anticoagulants; Z82.49 Family history of ischemic heart disease and other diseases of the circulatory system; Z79.899 Other long term (current) drug therapy
CPT/HCPCS: 10081

== ENCOUNTER → 2019-04-10 | Outpatient (CLI) | payer OTHER ==
[~2019-04-10] MED LIST changes: +IRON325 PO; +KLOR-CON M2020 MEQ PO; +NORVASC10 MG PO; +XARELTO20 MG PO
== END ==
LOC: SJCVC 09:17
DX: I45.4 Nonspecific intraventricular block (principal); R94.31 Abnormal electrocardiogram [ECG] [EKG]; I48.91 Unspecified atrial fibrillation; I11.0 Hypertensive heart disease with heart failure; I50.22 Chronic systolic (congestive) heart failure; E78.00 Pure hypercholesterolemia, unspecified; E11.9 Type 2 diabetes mellitus without complications; G47.33 Obstructive sleep apnea (adult) (pediatric); J44.9 Chronic obstructive pulmonary disease, unspecified; E66.9 Obesity, unspecified; Z79.899 Other long term (current) drug therapy; Z87.891 Personal history of nicotine dependence

== ENCOUNTER → 2019-07-22 | Outpatient (CLI) | payer OTHER | LOC: SJCVC 09:14 | DX: Z87.891 Personal history of nicotine dependence (principal); E78.5 Hyperlipidemia, unspecified; I10 Essential (primary) hypertension; E66.9 Obesity, unspecified; E11.9 Type 2 diabetes mellitus without complications; J44.9 Chronic obstructive pulmonary disease, unspecified ==

== ENCOUNTER → 2019-08-11 | Outpatient (CLI) | payer OTHER | LOC: SJCVC 10:37 | DX: R94.31 Abnormal electrocardiogram [ECG] [EKG] (principal); I48.91 Unspecified atrial fibrillation; I42.9 Cardiomyopathy, unspecified; I10 Essential (primary) hypertension; E78.00 Pure hypercholesterolemia, unspecified; R55 Syncope and collapse; E11.9 Type 2 diabetes mellitus without complications; G47.33 Obstructive sleep apnea (adult) (pediatric); Z99.89 Dependence on other enabling machines and devices; Z72.0 Tobacco use ==

== ENCOUNTER → 2019-12-08 | Outpatient (CLI) | payer OTHER | LOC: LAB 12:32 | PROVIDERS: ATTEND Family Medicine | DX: Z20.828 Contact with and (suspected) exposure to other viral communicable diseases (principal) ==

== ENCOUNTER 2019-12-10 10:27 | Inpatient (IN) | payer OTHER ==
[~2019-12-10] VITALS: Ht 180.3 cm; Wt 154.2 kg
[2019-12-10 10:32] VITALS: BP 142/83
[2019-12-10 11:33] LABS: ANION GAP 7 mmol/L (7-16); BUN 17 mg/dL (7-18); CALCIUM 8.8 mg/dL (8.5-10.1); CHLORIDE 103 mmol/L (98-107); CO2 32 mmol/L (21-32); CREATININE 1.1 mg/dL (0.7-1.3); GLUCOSE 125 mg/dL (74-106); POTASSIUM 3.8 mmol/L (3.5-5.1); SODIUM 142 mmol/L (136-145)
[2019-12-10 11:34] LABS: ABSOLUTE NEUTROPHILS 9.4 thou/uL (1.4-8.2); BASOPHILS 1.3 % (0.0-2.0); HEMATOCRIT 38.5 % (42.0-52.0); HEMOGLOBIN 12.3 gm/dL (14.0-18.0); LYMPHOCYTES 9.9 % (24.0-44.0); MCHC 31.9 g/dL (28.0-37.0); MCV 97.1 fL (80.0-100.0); MONOCYTES 8.8 % (1.0-8.0); PLATELET COUNT 454 thou/uL (150-400); RBC 3.97 mil/uL (4.50-6.00); RDW 15.4 % (10.5-14.5); WBC 11.9 thou/uL (4.0-11.0)
[2019-12-10 11:43] LABS: ALBUMIN 3.5 g/dL (3.4-5.0); SGOT 24 U/L (15-37); SGPT 32 U/L (30-65); TOTAL BILIRUBIN 1.2 mg/dL (0.2-1.0); TOTAL PROTEIN 7.6 g/dL (6.4-8.2); TROPONIN-I <0.06 ng/mL (<0.06)
[2019-12-10 12:21] LABS: APTT 40.4 Seconds (24.5-32.8); INR 1.4; PROTIME 13.9 Seconds (9.3-11.4)
[2019-12-10 12:50] LABS: BE(vivo) 3.8 mmol/L (-2 to +3); HCO3 29.3 mmol/L (22.0-26.0); PCO2 47.5 mmHg (35.0-45.0); PO2 57.5 mmHg (80.0-100.0); pH 7.408 (7.360-7.450); sO2 89.9 % (92.0-98.0)
[2019-12-10 13:15] LABS: URINE BILIRUBIN NEGATIVE (Negative); URINE BLOOD NEGATIVE (Negative); URINE CLARITY CLEAR; URINE COLOR YELLOW; URINE GLUCOSE-RANDOM* NEGATIVE (Negative); URINE KETONES NEGATIVE (Negative); URINE LEUKOCYTES-REFLEX NEGATIVE (Negative); URINE NITRITE-REFLEX NEGATIVE (Negative); URINE PROTEIN (DIPSTICK) 1+ (Negative)
[2019-12-10 13:29] LABS: CASTS None Seen /LPF (None Seen); CRYSTALS None Seen /LPF (None Seen); SQUAMOUS None Seen /LPF (0-3)
[2019-12-10 13:30] LABS: BACTERIA-REFLEX None Seen /HPF (None Seen); URINE RBC None Seen /HPF (0-2); URINE WBC-REFLEX 0-5 Rare /HPF (0-5)
[2019-12-10 14:32] VITALS: BP 92/57
--- NOTE | 2019-12-10 14:36 | NUR ---
TALKED WITH SON, OK'D BY PT, TO GIVE UPDATE AND ROOM NUMBER
[2019-12-10 15:20] VITALS: BP 92/57
[2019-12-10 16:00] VITALS: BP 141/70
--- NOTE | 2019-12-10 17:26 | NUR ---
PT ARRIVED TO THE UNIT AT 1530, PRIOR TO ARRIVAL PT'S BP WAS DROPPING AFTER THE FUROSEMIDE ADMINISTRATION, HOWEVER WHEN PT WAS ON THE FLOOR PT HAD A HEALTH VS AND BP WAS NORMALIZED. PT DID COMPLAIN OF RLQ ABD PX, PT STATED THE KETOROLAC RECEIVED IN THE ED HELPED. PT WAS ALSO ORDERED THE HEART HEATHY DIET W/O FLUID RESTRICTION. PT WAS SEEN SNOOZING ON THE BED. ALL BELONGINGS WITH THE PATIENT ARE STILL WITH THE PATIENT. CONTINUING TO MONITOR AT THIS TIME. NO EDEMA PRESENT, LUNG SOUNDS ARE DIMINSHED
[2019-12-10 20:00] VITALS: BP 131/78
--- NOTE | 2019-12-11 00:05 | NUR ---
ASSESSMENT: PT REMAIN ALERT AND ORIENT TIMES FOUR. ABLE TO AMBULATE TO CHAIR AND BACK TO BED WITH A STEADY GAIT. VSS, AFEBRILE. BOTH ANTIGEN/PCR COVID WERE NEGATIVE. GEAR NICKER NOTIFIED. NOT CLEARED WITH DR. NAPIER NOR INOCENCIO. ACCORDING TO HS THERE IS NO WHERE TO CURRENTLY MOVE PT. WILL INFORM DAY RN OF THE SITUATION AND THAT EITHER DR. NAPIER OR INOCENCIO NEEDS TO PLACE CLEARANCE OF ISOLATION. PT IS PLEASANT AND IS VERY COOPERATIVE. TOLERATING PO INTAKE. DENIES PAIN CURRENTLY. AFIB WITH BBB PER MONITOR. SLOW PROGRESS, WILL CONTINUE TO MONITOR.
[2019-12-11 04:30] VITALS: BP 128/88
[2019-12-11 06:00] LABS: HEMATOCRIT 37.3 % (42.0-52.0); HEMOGLOBIN 11.8 gm/dL (14.0-18.0); MCHC 31.6 g/dL (28.0-37.0); MCV 98.1 fL (80.0-100.0); RBC 3.8 mil/uL (4.50-6.00); RDW 15.3 % (10.5-14.5); WBC 10.2 thou/uL (4.0-11.0)
[2019-12-11 06:25] LABS: CALCIUM 9.2 mg/dL (8.5-10.1); CREATININE 1.2 mg/dL (0.7-1.3); POTASSIUM 4.4 mmol/L (3.5-5.1)
[2019-12-11 06:45] VITALS: BP 127/80
--- NOTE | 2019-12-11 07:07 | NUR ---
ASSESSMENT: PT HAD 11-17 BTS OF V-TACH. PT WAS ASYMPTOMATIC. VSS. DENIES CP, SOB, NOT DIAPHORECTIC. CALL PLACED FOR DR. SUTTON. TALKED WITH ANSWERING SERVICE. AWAITING RETURN CALL.
--- NOTE | 2019-12-11 07:42 | EKG ---
[facility] [place] [address] ELECTROCARDIOGRAM REPORT Name: TRISH LEE Room #: 352-P ADM IN M.R.#: [id number] Admission: 12/10/19 Attend Phys: Harpal Ross MD Discharge: Date of : 54 Report #: [id number] THIS REPORT FOR: cc: Alexandre Ritchie James A. DO Santiago, Patrick MD [facility] ~ THIS REPORT FOR: //name// [facility] ED Test Date: 2019-12-10 Test Time: 10:47:03 Pat Name: TRISH LEE Department: Room: [facility] Gender: M Rn Clinical Trials: ESHEETS : 1950 Requested By: Ana Nuñez Order Number: [id number] MD: Jamie Chung Measurements Intervals [place] Rate: 92 P: NM: QRS: -53 QRSD: 154 T: 112 QT: 421 QTc: 521 Interpretive Statements Atrial fibrillation Paired ventricular premature complexes Left bundle branch block Compared to ECG 03/31/2019 09:36:09 Ventricular premature complex(es) now present No significant change Electronically Signed On 12-11-2019 7:42:24 CDT by Jamie Chung [email or web address] <ELECTRONICALLY SIGNED> By: Jamie Chung MD, FAC 12/11/19 0742 1047 1047 Jamie Chung MD, FAC /EPI
--- NOTE | 2019-12-11 09:00 | EKG ---
[facility] [place] [address] [place] [address] ELECTROCARDIOGRAM REPORT Name: TRISH LEE Room #: 352- ADM IN M.R.#: [id number] Admission: 12/10/19 Attend Phys: Harpal Ross MD Discharge: Date of : 54 Report #: [id number] THIS REPORT FOR: cc: Alexandre Ritchie James A. DO Lundgren, Craig H. MD [facility] ~ THIS REPORT FOR: //name// [facility] Test Date: 2019-12-11 Test Time: 07:51:31 Pat Name: TRISH LEE Department: Room: 352 Gender: M Handbag Operator: CHELSEA : 1950 Requested By: Isaiah Mendoza Order Number: [id number] MD: Lisandro Zepeda Measurements Intervals [place] Rate: 85 P: ID: QRS: -42 QRSD: 151 T: 112 QT: 441 QTc: 525 Interpretive Statements Atrial fibrillation Left bundle branch block Compared to ECG 12/10/2019 10:47:03 Ventricular premature complex(es) no longer present Electronically Signed On 12-11-2019 9:00:09 CDT by Lisandro Zepeda [email or web address] <ELECTRONICALLY SIGNED> By: Lisandro Zepeda MD, [facility] 12/11/19 0900 0751 0751 Lisandro Zepeda MD, [facility] /EPI
[2019-12-11 12:24] VITALS: BP 134/84
[2019-12-11 15:07] VITALS: BP 128/78
--- NOTE | 2019-12-11 16:08 | NUR ---
ASSESSMENT: CM REVIEWED CHART AND SPOKE WITH PT. PT IS ALERT AND ORIENTED X4. PT WAS ADMITTED WITH SOB/COPD EXACERBATION. PT ALSO HAS AN EF OF 30 PERCENT AND HAVING RUNS OF NONSUSTAINED VT. PT REPORTS THAT HE LIVES AT HOME WITH HIS SON AND FAMILY. PT REPORTS THAT HE HAS ABOUT 4 STEPS TO ENTER AND ABOUT 14 STESP WITH HANDRAILS TO THE BASEMENT WHERE HE STAYS. PT REPORTS HE IS NORMALLY INDEPENDENT WITH ADLS AND AMBULATION. PT REPORTS HAVING A GRAB BAR IN THE SHOWER. PT REPORTS THAT HE HAD HH YEARS AGO [place] OF STATE BUT HAS NOT HAD HH RECENTLY. PTS PCP IS DR. WHITE. PT IS COVID NEGATIVEX2. PT IS CURRENTLY ON 2L OXYGEN AND REPORTS HE DOES NOT HAVE OXYGEN AT HOME BUT HAS A CPAP. PATIENT MAY NEED POSSIBLE AICD IMPANTATION. NO ANTICIPATED DISCHARGE OVER THE WEEKEND. CM WILL CONTINUE TO FOLLOW TO ASSIST NEEDED.
--- NOTE | 2019-12-11 16:15 | NUR ---
RN HAS ASSUMED PT'S CARE AT 0700AM, PT IS A&OX3, PT IS CONTINUING O2 L/MIN/NC, AND IV ABX, PT LIKE TO SIT AT CHAIR TO IMPROVE HIS SOB, PT HAS PULMONARY DR AND CARDIOLOGY DR TO SEE THIS PT, PT HAS SOB WITH ACTIVIES, PT 'S ISOLATION HAS DC DUE TO NEGATIVE COVID TEST .
[2019-12-11 19:43] VITALS: BP 110/78
[2019-12-12 04:09] VITALS: BP 122/77
--- NOTE | 2019-12-12 05:30 | NUR ---
ASSUMED PT CARE AROUND 1930. AXOX4. INDEPENDENT WITH ADLs. REQUESTED STRONGER PAIN MED FOR NONCARDIAC CHEST PAIN FROM COUGHING. CALLED CUSTOMER ACCOUNT REPRESENTATIVE AND GOT ORDERS FOR ONETIME TORADOL. REPORTS RELIEF AFTER TORADOL AND COUGH SYRUP. VSS. NO S/S ACUTE DISTRESS NOTED OR REPORTED AT THIS TIME. WILL CONT TO MONITOR FOR ANY CHANGES IN CONDITION.
[2019-12-12 05:51] LABS: HEMATOCRIT 37.3 % (42.0-52.0); HEMOGLOBIN 11.6 gm/dL (14.0-18.0); MCH 30.8 pg (26.0-34.0); MCHC 31.2 g/dL (28.0-37.0); MCV 98.5 fL (80.0-100.0); RBC 3.79 mil/uL (4.50-6.00); RDW 15.8 % (10.5-14.5); WBC 17.4 thou/uL (4.0-11.0)
[2019-12-12 06:10] LABS: CALCIUM 9.4 mg/dL (8.5-10.1); CREATININE 1.2 mg/dL (0.7-1.3); MAGNESIUM 2.8 mg/dL (1.8-2.4); POTASSIUM 5.1 mmol/L (3.5-5.1)
[2019-12-12 07:45] VITALS: BP 126/82
[2019-12-12 15:50] VITALS: BP 108/65
--- NOTE | 2019-12-12 16:23 | NUR ---
RN HAS ASSUMED PT'S CARE AT 0700AM, PT IS A&OX3, PT IS ON O2 1-2 L/MIN/NC, PT'S VS ARE STABLE, PT GETS UP TO CHAIR, PT HAS SOB WITH ACTIVITIES, PT IS CONTINUING IV ABX AND BREATHING TREATMENT,
[2019-12-12 17:10] LABS: BE(vivo) 3.9 mmol/L (-2 to +3); HCO3 30.1 mmol/L (22.0-26.0); PCO2 52.7 mmHg (35.0-45.0); PO2 71.6 mmHg (80.0-100.0); pH 7.375 (7.360-7.450); sO2 93.8 % (92.0-98.0)
--- NOTE | 2019-12-12 19:10 | NUR ---
RN HAS ASSUMED PT'S CARE AT 0700AM, PT IS A&OX2 ( PERSON AND PLACE), PT CAN FOLLOW COMMANDS, PT IS CONTINUING IV ABX AND WOUND CARE , PT'S ABD DISTENTION HAS IMPROVED, PT HAS 250ML LIQUID STOOL COMING IN COLOSTOMY BAG, PT DOES NOT HAVE N/V TODAY, PT'S HGB IS 6.9 TODAY ,RN STARTS 1 UNIT BLOOD TRANSFUSION AT 1800PM, NO TRANSFUTION REACHING BY THIS TIME, RN HAS REPORTED TO NEXT SHIFT TO KEEP EYE ON PT.
[2019-12-12 20:21] VITALS: BP 124/84
[2019-12-13 04:30] VITALS: BP 92/50
[2019-12-13 05:42] LABS: ABSOLUTE NEUTROPHILS 18.6 thou/uL (1.4-8.2); HEMATOCRIT 37.3 % (42.0-52.0); HEMOGLOBIN 11.7 gm/dL (14.0-18.0); LYMPHOCYTES 1.6 % (24.0-44.0); MCH 30.7 pg (26.0-34.0); MCHC 31.4 g/dL (28.0-37.0); MCV 97.6 fL (80.0-100.0); MONOCYTES 3.1 % (1.0-8.0); PLATELET COUNT 453 thou/uL (150-400); POLYS 95.3 % (36.0-66.0); RBC 3.82 mil/uL (4.50-6.00); RDW 15.4 % (10.5-14.5); WBC 19.5 thou/uL (4.0-11.0)
--- NOTE | 2019-12-13 15:23 | NUR ---
RN HAS ASSUMED PT'S CARE AT 0700AM , PT IS A&OX3, PT IS ON O2 2L/MIN/NC, PT IS CONTINUING IV ABX AND BREATHING TREATHING TREATMENT, PT HAS SOB WITH ACTIVITIES, PT'S VS ARE STABLE, PT HAS PLAN TO HAVE CONDUIT REAMER OPERATOR AND US THORACENTESIS ( CHEST CT SCAN SHOWS PLEURAL EFFUSION ) TOMORROW, PT HAS SIGNED THE CONSENTS, PT GETS UP TO CHAIR AND STAY MOST OF TIME.
[2019-12-13 15:42] VITALS: BP 129/86
--- NOTE | 2019-12-13 18:37 | NUR ---
RN WILL REPORT TO NEXT SHIFT , KEEP NPO AFTER MN TODAY FOR PROCEDURES.
[2019-12-13 19:24] VITALS: BP 105/63
--- NOTE | 2019-12-13 21:43 | NUR ---
PT ALERT AND ORIENTED X4. VSS AFEBRILE. LUNGS DININISHED. UNLABORED ON 2LNC. INSTRUCTED PT TO BE NPO AFTER MN FOR CARDIAC CATH IN AM. PT SITTING UP IN CHAIR. REFUSED CPAP. PT C/O RIGHT RIBS HURTING WITH BREATHING . DENIED CARDIAC CHEST PAIN. COMPLETE RELIEF OBTAINED PRESENTLY WITH TORADOL PO.
[2019-12-14] VITALS (10 sets, daily range): BP systolic 115–157; BP diastolic 52–103
--- NOTE | 2019-12-14 03:15 | NUR ---
O2 SAT 084% ON CPAP WITH 2LNC BLED IN. NOTIFIED RT. INCREASED O2 TO 8L PER CPAP SAT 92-93% . BS DIMINISHED.RR 20. WAITING FOR RT TO COME SEE PT.
--- NOTE | 2019-12-14 05:23 | NUR ---
PT RESTING QUIETLY. NO C/O PAIN. SITTING UP IN CHAIR WITH O2 2LNC ON. CPAP OFF PER PT REQUEST. WILL CONTINUE TO MONITOR PT FOR CHANGES. NPO AFTER MN FOR TORACENTESIS AND CARDIAC CATHETER.
[2019-12-14 05:43] LABS: ABSOLUTE NEUTROPHILS 13.5 thou/uL (1.4-8.2); BASOPHILS 0.1 % (0.0-2.0); HEMATOCRIT 37.1 % (42.0-52.0); HEMOGLOBIN 11.7 gm/dL (14.0-18.0); LYMPHOCYTES 2.2 % (24.0-44.0); MCH 31.2 pg (26.0-34.0); MCHC 31.7 g/dL (28.0-37.0); MCV 98.5 fL (80.0-100.0); PLATELET COUNT 424 thou/uL (150-400); POLYS 94.7 % (36.0-66.0); RBC 3.76 mil/uL (4.50-6.00); RDW 15.3 % (10.5-14.5); WBC 14.3 thou/uL (4.0-11.0)
[2019-12-14 05:54] LABS: CALCIUM 9.4 mg/dL (8.5-10.1); MAGNESIUM 2.9 mg/dL (1.8-2.4); POTASSIUM 5.6 mmol/L (3.5-5.1)
--- NOTE | 2019-12-14 09:39 | EKG ---
[facility] [place] [address] ELECTROCARDIOGRAM REPORT Name: TRISH LEE Room #: 352-P ADM IN M.R.#: [id number] Admission: 12/10/19 Attend Phys: Harpal Ross MD Discharge: Date of : 54 Report #: [id number] THIS REPORT FOR: cc: Alexandre Ritchie James A. DO Lammoglia,Hansel Mccoy MD ~ THIS REPORT FOR: //name// [facility] Test Date: 2019-12-14 Test Time: 08:45:07 Pat Name: TRISH LEE Department: Room: [facility] Gender: M Oncologist: CHELSEA : 1950 Requested By: Gary Tejada Order Number: [id number] MD: Hansel Harvey Measurements Intervals [place] Rate: 98 P: MN: QRS: -37 QRSD: 144 T: 118 QT: 375 QTc: 479 Interpretive Statements Atrial fibrillation Left bundle branch block Baseline wander in lead(s) V2 Compared to ECG 12/11/2019 07:51:31 No significant changes Electronically Signed On 12-14-2019 9:38:57 CDT by Hansel Harvey [email or web address] <ELECTRONICALLY SIGNED> By: Hansel Harvey MD 12/14/1936 4 4 Hansel Harvey MD /EPI
[2019-12-14 11:08] LABS: CLARITY CLOUDY; COLOR RED; SOURCE THORACENTESIS; TOTAL VOLUME 62 mL
--- NOTE | 2019-12-14 11:46 | NUR ---
SW reviewed chart and spoke with nursing and attending physician. Enhanced Isolation precautions discontinued. Pt had thoracentesis earlier today and will have cardiac cath later today. Pt is requiring O2. Pt is not on O2 at home. Therapy ordered to evaluate pt for discharge needs. LISSA placed call to pt's room. No answer. LISSA is following to assist as needed with discharge planning.
[2019-12-14 14:19] LABS: BF NUCLEATED CELLS 899 /mm3; BF RBC 13664 /mm3
--- NOTE | 2019-12-14 14:32 | NUR ---
ASSUMED CARE APPROX 0700. PT ALERT AND ORIENTED X4. ASSESSMENT CHARTED AND VSS. PT AFEBRILE THIS SHIFT. ON 2LNC W/O SIGNS OF DISTRESS. DOES C/O SOB W/ EXERTION. PT DENIES CHEST PAIN. PT DENIES ACUTE PAIN. WENT FOR THORACENTESIS THIS AM. 1L REMOVED FROM RT SIDE. PT COVID NEGATIVE. GOING FOR CARDIAC CATH THIS AFTERNOON AND TO BE TX TO CCU AFTER. AFIB ON TELE MONITOR.
[2019-12-14 14:46] LABS: BE(vivo) -0.6 mmol/L (-2 to +3); HCO3 29.5 mmol/L (22.0-26.0); PCO2 VENOUS 79.3 mmHg (41.0-51.0); PO2 VENOUS 32.2 mmHg (35.0-45.0)
[2019-12-14 14:47] LABS: BE(vivo) 0.7 mmol/L (-2 to +3); HCO3 30.1 mmol/L (22.0-26.0); PO2 65.1 mmHg (80.0-100.0); sO2 88.1 % (92.0-98.0)
[2019-12-14 14:49] LABS: PCO2 73.2 mmHg (35.0-45.0); pH 7.232 (7.360-7.450)
[2019-12-14 15:31] LABS: BF MACROPHAGE 19 %; BF NEUTROPHILS 6 %
--- NOTE | 2019-12-14 15:58 | CATHLAB ---
[facility] [address] [address] INVASIVE PROCEDURE REPORT Name: TRISH LEE Room #: 202-P ADM IN M.R.#: [id number] Admission: 12/10/19 Attend Phys: Harpal Ross MD Discharge: Date of : 54 Report #: [id number] THIS REPORT FOR: cc: Alexandre Ritchie James A. DO Park, Jin S. MD ~ APPROVED REPORT Study performed: 12/14/2019 13:48:32 Patient Details Patient Status: In-Patient Room #: 209 The patient is a 69 year-old male Event Personnel Isaiah Mendoza Panelboard Assembler, Faith Spencer RTR, MARINE PIPEFITTER Monitor, Courtney Perez RN RN, Emmy Newell RTR Scrub, Enedelia Cullen RN durable medical equipment repairer Performed Art Access - R femoral artery* Real Access - R femoral vein Right and Left Heart Cath w/or w/o Coronarie [id number] RL [address] Initial Mod Sed Same Phys/QHP Gr5y [id number] 19588 Mod Sed Same Phys/QHP Ea [id number] Hemostasis w/ Mynx Hemostasis with Manual pressure Indication CHF Current Status: , Atrial fibrillation, Dyspnea, Cardiomyopathy Risk Factors Obesity, Chronic Lung DiseaseHypercholesterolemia, Hypertension Previous Procedures/Diagnoses Previous CHF Procedure Narrative The Right Groin^ was infiltrated with 1% Lidocaine subcutaneous anesthesia. A PINNACLE 5FR Sheath #[id number] sheath was inserted into the RFA. Coronary angiography was performed using coronary diagnostic catheters. The right coronary system was accessed and visualized with a 5FR JR 5 #[id number] catheter. The left coronary system was accessed and visualized with a 5FR JL5 #[id number] catheter. The left ventricle was accessed and visualized with a 5FR PIG 145 ANGLED #[id number] [facility] [place] [address] INVASIVE PROCEDURE REPORT Name: ROSATRISH Room #: 202-P [facility] IN ..#: [id number] Admission: 12/10/19 Attend Phys: Harpal Ross MD Discharge: Date of : 54 Report #: [id number] catheter. Left ventricular/Aortic Valve gradient assessed via catheter pullback. Left ventriculogram was performed in 30 degree projection. Pre-demployment femoral angiogram was performed . Closure device was deployed with a 5 Fr MYNXGRIP 5F #[id number]. Hemostasis was obtained with manual pressure following sheath removal without any complications. The patient tolerated the procedure well and there were no complications associated with the procedure. There was no hematoma. Intraoperative Conscious Sedation Sedation start time: 14:24 Case end Time: 15:32 Fentanyl 50 mcg Versed 1 mg Fluoro Time: 12.30 minutes Dose: DAP 39553.00 cGycm2 3065 mGy Contrast Type and Amount: Omnipaque 125 ml Coronary Angiography The patient's coronary anatomy is right dominant. Diagnostic Cath Left Main The left main artery is a large-caliber vessel with mild tapering distally. LAD The LAD is a moderate-sized caliber vessel, traversing the anterior wall and wrapping around the apex. There is mild diffuse disease in the proximal segment, 20%. Diagonal 1 This is a small to moderate-sized caliber vessel with mild disease proximally. Diagonal 2 This is a small to moderate-sized caliber vessel with no flow-limiting lesions. Circumflex The left circumflex artery is a patent vessel, tapers down to a small size caliber distally with no flow-limiting lesions. OM1 The first OM vessel is a moderate-sized caliber vessel with mild disease proximally. OM2 This is a small to moderate-sized caliber vessel with no flow-limiting lesions. Right Coronary The RCA is a dominant vessel with mild diffuse disease proximally, 20%. R PDA This is a small to moderate-sized caliber vessel with no flow-limiting lesions. RPLV This is a small to moderate-sized caliber vessel with no flow-limiting lesions. Left Ventriculography [facility] [address] [place] [address] INVASIVE PROCEDURE REPORT Name: TRISH LEE Room #: 202-P [facility] IN M.R.#: [id number] Admission: 12/10/19 Attend Phys: Harpal Ross MD Discharge: Date of : 54 Report #: [id number] The left ventricle is dilated in size with Decreased contractility. The left ventricular ejection fraction is estimated to be 20-25%. Hemodynamics The right atrial mean pressure is 30 mmHg. The right ventricular pressure is 86/22 mmHg. The pulmonary artery pressure is 85/56 mmHg with a mean of 67 mmHg. The mean pulmonary capillary wedge pressure is 44 mmHg. The aortic pressure is 122/78 mmHg with a mean of 100 mmHg. The left ventricular pressure is 123/31 mmHg with a mean of mmHg. The left ventricular end diastolic pressure is 43 mmHg. PaO2 saturation is 49.00 %. Arterial saturation is 88.00 %. The cardiac output using the Ton method is 5.17 L/min. The cardiac index using the Ton method is 2.02 L/min/m2. Conclusion 1. Severe, nonischemic cardiomyopathy. 2. Right-sided pressures measured, as listed. 3. Severe pulmonary hypertension. 4. Recommend guideline directed medical therapy. <ELECTRONICALLY SIGNED> By: Isaiah Mendoza MD 12/14/19 1558 1558 1558 Isaiah Mendoza MD /INF
--- NOTE | 2019-12-14 18:25 | NUR ---
PT CARE ASSUMED AT 1530. ASSESSMENT CHARTED. MEDICATION CHARTED. RT AND LT HEART CATH; ARTERIAL RECIEVED A MYNX CLOSURE; VENOUS RECIEVED MANUAL PRESSURE ONLY. HEMOSTASIS WAS AT 1525; BEDREST UNTIL 1825. THORACENTESIS TODAY; 1 L REMOVED FROM RT LUNG. LFA AND RFA IV'S; PLEASE MAINTAIN THEM BOTH. ICD SCHEDULED FOR TOMORROW. NPO AFTER 0000.
--- NOTE | 2019-12-15 03:44 | NUR ---
ASSESSMENT: PT REMAIN ALERT AND ORIENT TIMES FOUR. NPO AT MN FOR DEFIBRILATOR PLACE TODAY. VSS, AFEBRILE. AFIB WITH BBB PER MONITOR. UP AD BRIGID TO BR. SMALL BM EARLIER DURING THE DAY. TOLERATING PO INTAKE. DENIES PAIN. SLOW PROGRESS TOWARDS DC GOALS. WILL CONTINUE TO MONITOR.
[2019-12-15 04:10] LABS: ABSOLUTE NEUTROPHILS 11.5 thou/uL (1.4-8.2); HEMATOCRIT 37.9 % (42.0-52.0); HEMOGLOBIN 11.6 gm/dL (14.0-18.0); LYMPHOCYTES 3.6 % (24.0-44.0); MCH 29.9 pg (26.0-34.0); MCHC 30.7 g/dL (28.0-37.0); MCV 97.5 fL (80.0-100.0); MONOCYTES 5.6 % (1.0-8.0); PLATELET COUNT 392 thou/uL (150-400); POLYS 90.8 % (36.0-66.0); RBC 3.88 mil/uL (4.50-6.00); RDW 15.3 % (10.5-14.5); WBC 12.7 thou/uL (4.0-11.0)
[2019-12-15 04:30] LABS: CALCIUM 8.9 mg/dL (8.5-10.1); CREATININE 1.1 mg/dL (0.7-1.3); POTASSIUM 4.8 mmol/L (3.5-5.1)
[2019-12-15 07:00] VITALS: BP 126/89
[2019-12-15 12:15] VITALS: BP 126/89
[2019-12-15 13:08] LABS: BODY FLUID ALBUMIN 0.7 g/dL (Not Estab.); BODY FLUID AMYLASE 14 U/L (()); BODY FLUID GLUCOSE 204 mg/dL (()); BODY FLUID LDH 46 IU/L (()); BODY FLUID PROTEIN 1.2 g/dL (())
[2019-12-15 15:25] VITALS: BP 107/75
[2019-12-15 16:15] VITALS: BP 107/75
--- NOTE | 2019-12-15 17:06 | PATH ---
[facility] [address] [place] [address] PATHOLOGY RPT PROCEDURE Name: TRISH LEE Room #: 202-P ADM IN M.R.#: [id number] Admission: 12/10/19 Date of : 54 Discharge: Report #: [id number] Path Case #: [id number] Note LCA Accession Number: [id number] TESTS RESULT FLAG UNITS REF RANGE LAB Clinician Provided Cytology Information No. of containers..01 Other (Miscellaneous) Source: 01 PLEURAL FLUID DIAGNOSIS: 02 PLEURAL FLUID NEGATIVE FOR MALIGNANT EPITHELIAL CELLS. REACTIVE MESOTHELIAL CELLS ARE PRESENT. THIS INTERPRETATION INCLUDES EVALUATION OF A CELL BLOCK. Pathologist ICD10: 02 J18.9 Signed out by: 02 Jie Nash MD, Pathologist NPI- [id number] Performed by: Xochitl Resendiz, Systems Tester ([facility]) Gross description: 01 20ML, RED, 1 TP 1 CB /LCS 12/14/2019 1507 Local FLAG LEGEND: L-Low Normal,H-High Normal,LL-Alert Low,HH-Alert High <-Panic Low,>-Panic High,A-Abnormal,AA-Critical Abnormal Performed at: [address] [place] [address] William Casper MD, [address] [address] Jie Nash MD, Specimen Comment: A courtesy copy of this report has been sent to [phone] Specimen Comment: [phone], Specimen Comment: Report sent to ,DR NAPIER / DR WHITE Specimen Comment: A duplicate report has been generated due to demographic updates. Performed at: [address], [place], [place] [id number] MD William Casper MD Phone: [phone]
--- NOTE | 2019-12-15 18:52 | NUR ---
PT CARE ASSUMED AT 0700. ASSESSMENT CHARTED. MEDICATION CHARTED. PT LEFT FOR ICD PLACEMENT BEFORE THE START OF SHIFT RETURNED ROUGHLY 1200. ICD PLACEMENT LT SUBCLAVIAN; DERMABONDED. LT ARM IN A SLING; PT GREATER THAN 30 DEGREES. LUNA; 1650 ML. TWO LFA IV'S. ACHS. VPACED. BIPAP AT HS.
[2019-12-15 19:30] VITALS: BP 124/69
[2019-12-15 23:05] VITALS: BP 124/69
[2019-12-16] VITALS (7 sets, daily range): BP systolic 98–148; BP diastolic 54–77
--- NOTE | 2019-12-16 02:57 | NUR ---
ASSESSMENTS CHARTED, MEDS CHARTED GIVEN. PATIENT ON BEDREST DURING SHIFT FROM POST ICD PLACEMENT. VARIOUS RHYTHMS DURING SHIFT. ON [address] LITERS [address]XYGEN. LUNA IN PLACE WHILE ON BED REST. ACCU CHECK 210 AT HS. RIGHT GROIN SITE MINXX CLOSURE, SOFT, C/D/I. PATIENT GETTING LASIX THERAPY. C/O PAIN AT INCISION SITE 08/25. FALL PRECAUTIONS IN PLACE DURING SHIFT.
--- NOTE | 2019-12-16 08:10 | NUR ---
DR. MCELROY IN ROOM. TECH IN ROOM TO INTERAGATE PACER. VERBAL ORDERS TO MAKE PT NPO AND DO HIS XRAY FOR PACEMAKER PLACEMENT SOON POSSILBE. PT IS ABLE TO STAND FOR XRAY PER TELECOMMUNICATIONS ANALYST. PT POSSIBLY HAVING TO GO BACK TO SALES ACCOUNT EXECUTIVE DUE TO LEAD NOT BEING PLACED WERE IT NEEDS TO BE.
--- NOTE | 2019-12-16 10:10 | NUR ---
BALL FRINGE MACHINE OPERATOR NURSE IN ROOM. TOOK PT VIA BED FOR PROCEDURE.
--- NOTE | 2019-12-16 10:11 | NUR ---
Assess due to high BMI 44.4=extreme class III obesity. Admit with CHF exacerbation and s/p ICD. Hx DM. Appetite is good,eating 75-100% of meals. Wts relatively stable past year, requires diuresis. NPO for possible procedure today. Pt states has been trying to reduce Na intake at home and children/family assist. Denied need for diet education or materials. Rec heart healthy, carb control diet order. Low nutrition risk
[2019-12-16 11:20] LABS: HEMATOCRIT 37.4 % (42.0-52.0); HEMOGLOBIN 11.9 gm/dL (14.0-18.0); MCH 30.8 pg (26.0-34.0); MCHC 31.8 g/dL (28.0-37.0); MCV 96.8 fL (80.0-100.0); RBC 3.87 mil/uL (4.50-6.00); RDW 15.4 % (10.5-14.5); WBC 14.9 thou/uL (4.0-11.0)
--- NOTE | 2019-12-16 11:23 | NUR ---
SW reviewed chart and spoke with attending physician. Pt transferred to CCU from . Pt had ICD placed yesterday. Pt to return to EP lab today to reposition implanted device. Pt is on IV lasix. Pt currently off the unit. Discussed with physical therapy, who has been unable to evaluate pt yet. PT will see pt tomorrow. Pt will discharge home when medically stable. LISSA is following to assist as needed with discharge planning.
[2019-12-16 11:39] LABS: CALCIUM 8.9 mg/dL (8.5-10.1); CREATININE 1.5 mg/dL (0.7-1.3); POTASSIUM 4.8 mmol/L (3.5-5.1)
--- NOTE | 2019-12-16 14:47 | NUR ---
PT BACK TO ROOM VIA BED FROM PACU
--- NOTE | 2019-12-16 16:32 | NUR ---
TALKED WITH PTS SON ON THE PHONE. UPDATED ON EVENTS THROUGH THE DAY AND PTS CONDITIONS. QUESTIONS ANSWERED
--- NOTE | 2019-12-16 18:14 | NUR ---
PT EVENTS THROUGH THE DAY CHARTED. PT RV LEAD NOT IN CORRECT PLACEMENT EVIDENCE BY PACEMAKER INTERIGATION AND CHEST XRAY. PT BACK TO POLE SHAVER FOR RV LEAD MANIPULATION. PT BACK TO ROOM. IMMOBLIZER IN PLACE TO LUE. BEDREST TILL AM XRAY. LUNA CATH IN PLACE. IV LASIX BEING ADMINSITERED. VSS THORUGHOUT SHIFT. TALKED WITH SON ON THE PHONE AND UPDATED ON TODAYS EVENTS.
--- NOTE | 2019-12-17 01:39 | NUR ---
ASSESSMENTS CHARTED, MEDS CHARTED GIVEN. PATIENT ON BEDREST DURING SHIFT AFTER GOING BACK TO THE DETECTIVE AUTOMOBILE SECTION TO REPLACE ICD LEAD. PATIENT IN LEFT ARM IMMOBLILIZER DURING SHIFT. C/O PAIN PRIMARILY LEFT CHEST INICISION SITE 10/25. CALLED Kishore TOURE FOR PAIN MED HIGH DEGREE OF PAIN. LUNA STILL IN PLACE, ON LASIX THERAPY. ACCU CHECKS ACHS WAS 312 AT HS. EDUCATION ON BETTER ALTERNATIVES TO DRINKING JUICE FOR DIABETICS. FALL PRECAUTIONS IN PLACE DURING SHIFT. PLAN OF CARE TO HAVE ICD INTEREGATED AND MORNING CXR.
[2019-12-17 04:00] VITALS: BP 117/70
[2019-12-17 04:55] LABS: HEMATOCRIT 37.4 % (42.0-52.0); HEMOGLOBIN 11.6 gm/dL (14.0-18.0); MCH 30.5 pg (26.0-34.0); MCV 98.2 fL (80.0-100.0); RBC 3.8 mil/uL (4.50-6.00); RDW 15.3 % (10.5-14.5)
[2019-12-17 04:58] LABS: ANION GAP < 0 mmol/L (7-16); BUN 46 mg/dL (7-18); CALCIUM 8.4 mg/dL (8.5-10.1); CHLORIDE 101 mmol/L (98-107); CO2 39 mmol/L (21-32); CREATININE 1.4 mg/dL (0.7-1.3); GLUCOSE 186 mg/dL (74-106); POTASSIUM 5.5 mmol/L (3.5-5.1); SODIUM 139 mmol/L (136-145)
[2019-12-17 07:34] VITALS: BP 125/82
--- NOTE | 2019-12-17 07:41 | NUR ---
PT 100% ON 3L PER NC. PT TITRATED DOWN TO 2L
--- NOTE | 2019-12-17 09:42 | NUR ---
LUNA CATH DISCONTINUED. EDUACTED ON USING URINAL WHEN HE HAS TO VOID
--- NOTE | 2019-12-17 10:20 | NUR ---
PT WALKED WITH PT IN [place]. O2 @ 2L. HAD TO BE INCREASED TO 6L DUE TO DESATURATIONS DOWN IN THE 70'S. HR UP IN THE 120'S WITH AMBULATION.
[2019-12-17 11:31] VITALS: BP 116/76
--- NOTE | 2019-12-17 13:28 | NUR ---
LISSA reviewed chart and spoke with nursing and attending physician. Pt went to lab engineer yesterday for RV lead repositioning. Pt to have one more day of IV lasix. Discharge home is anticipated for tomorrow. Pt is on O2. Will need rest/exercise oximetry prior to discharge to determine if pt needs home O2. LISSA placed call to pt's room. No answer. LISSA is following to assist as needed with discharge planning.
[2019-12-17 15:37] VITALS: BP 113/72
--- NOTE | 2019-12-17 17:57 | NUR ---
PT PACER INTERIGATED TODAY. PT BETWEEN VPACED AND AFIB. HR UP TO 120'S AFIB WHEN UP MOVING AROUND. WALKED WITH PT TODAY. SEE PREVIOUS NOTE REGUARDING DESATUARTION. AT REST PT DOWN FROM 3L TO 1L PER MI. LUNA CATH DISCONTINUED. STRICT I&O'S. PT UP TO VOID AT BEDSIDE. WALKS WITH STANDBY ASSIST. PLANS FOR DISCHARGE IN MORNING IF CARDIOLOGY IS OK WITH DIURESIS RESULTS.
[2019-12-17 20:05] VITALS: BP 125/83
[2019-12-18 00:05] VITALS: BP 105/75
[2019-12-18 04:15] VITALS: BP 113/79
--- NOTE | 2019-12-18 04:32 | NUR ---
PT IS PLEASANT MAN. ALERT AND ORIENTED X4. LUNGS ARE CLEAR DIMINDIHED.CLEANED UP A BIT AND CLEAN GOWN PLACED ON P. URINE PRESEENT.ABDOMEN ROUND AND BOWEL SOUNDS ACIVE. PAIN MEDS GIVEN PER REQUESTERED PT IN [place]..CALLL LIGHT WITHTIHN REACH IF NEEDS ASSISTANCE. WILL CONTINU TO,MONITOR PTN NUTINH. DLL J
[2019-12-18 07:30] VITALS: BP 114/82
[2019-12-18] MEDS ORDERED: COZAAR 25 MG TA25 MG PO ×2 (08:43)
[2019-12-18] MEDS ORDERED: XARELTO20 MG PO ×2 (08:43)
[2019-12-18] MEDS ORDERED: SPIRONOLACTONE25 M1 PO (08:43)
[2019-12-18] MEDS ORDERED: TORSEMIDE20 MG PO ×2 (08:43)
--- NOTE | 2019-12-18 08:55 | NUR ---
ASSUMED CARE OF PT AT SHIFT CHANGE, PAIN MED WORKING, ALSO TAKING BOWEL MEDS, IV ABX, AMB STEADY, A&0X4, TALK OF POSSIBLE D/C, HAS IMMOBILIZER ON - AMB SAFETY EVEN WITH THIS ON, ROOM WAS ICE COLD, PT DIDN'T KNOW HE HAD CONTROL SO WARMED UP ROOM, HE WAS QUITE SATISFIED W/WARM AIR AND HIS BREAKFAST. IV DIURETIC CHANGED TO ORAL, WILL ADM WHEN AVAILABLE. SEE SEPARATE INTERVENTIONS FOR ASSESSMENTS, NO BANDAGE ON SURG SITE, EDUCATION GIVEN ON SMOKING/RESPIRATORY TRACT, PT ADAMANT ABOUT STOPPING SMOKING AGAIN. ENCOURAGED HIM TO USE CALL LIGHT FOR ANY NEEDS
[2019-12-18] MEDS ORDERED: CEFDINIR300 MG PO ×2 (10:43)
[2019-12-18] MEDS ORDERED: PREDNISONE 20 M20 M1 PO ×2 (10:43)
[2019-12-18 11:05] LABS: SOURCE THORACENTESIS
[2019-12-18 12:14] VITALS: BP 114/82
[2019-12-18 12:16] LABS: HEMOGLOBIN 12.6 gm/dL (14.0-18.0); MCH 29.9 pg (26.0-34.0); MCHC 30.7 g/dL (28.0-37.0); MCV 97.4 fL (80.0-100.0); RBC 4.21 mil/uL (4.50-6.00); RDW 15.2 % (10.5-14.5); WBC 20.9 thou/uL (4.0-11.0)
[2019-12-18 12:23] VITALS: BP 111/60
[2019-12-18 12:23] LABS: CALCIUM 8.7 mg/dL (8.5-10.1); POTASSIUM 4.8 mmol/L (3.5-5.1)
--- NOTE | 2019-12-25 13:52 | P ---
[facility] [place] [address] [place] [address] PROCEDURE REPORT Name: TRISH LEE Room #: 202-P [facility] IN M.R.#: [id number] Admission: 12/10/19 Attend Phys: Harpal Ross MD Discharge: 12/18/19 Date of : 54 Report #: [id number] THIS REPORT FOR: cc: Alexandre Ritchie,Gary Merritt MD ~ CC: Alexandre Ross PROCEDURE PERFORMED: Bi-V ICD implantation. PREOPERATIVE DIAGNOSES: 1. Nonischemic cardiomyopathy. 2. Permanent atrial fibrillation. 3. Left bundle branch block. 4. [place] Heart Association functional class II-III heart failure symptoms. HISTORY: The patient is a 69-year-old male with history of nonischemic cardiomyopathy, EF of 20-25% with a left bundle branch block, permanent atrial fibrillation with [place] Heart Association functional class II-III heart failure symptoms, admitted to the hospital with acute on chronic LV systolic heart failure. He underwent diagnostic cardiac catheterization yesterday showing no coronary artery disease. He has been on optimal medical therapy for greater than 3 months and is therefore here for Bi-V ICD implantation. ANESTHESIA: The patient underwent general anesthesia with no anesthesia related complications. DESCRIPTION OF PROCEDURE: The patient underwent informed consent. We discussed the details of the procedure including the risks, which include but not limited to bleeding, infection, vascular damage, cardiac perforation and pneumothorax. He understood these risks and is willing to proceed. The patient was brought to EP laboratory in fasting and sedated state and prepped and draped in sterile fashion. Of note, he was initially tried on MAC sedation, but because of hypercapnia, he was transitioned over to general anesthesia. He had no anesthesia related complications during the procedure. Next, I injected lidocaine at the incision site. An incision was made, pocket was created over the prepectoral fascia and access was obtained twice to left axillary vein with sheaths positioned using the modified Seldinger technique. Next, a RV lead was placed into the right ventricular apex with adequate pacing and sensing thresholds. Next, a short sheath was placed into the subclavian vessel and a 9-Canadian coronary guide sheath was placed into the right atrium and I quickly obtained access to the coronary sinus. A formal venogram was performed, which showed that the patient had anterolateral branch in a middle cardiac vein and a nice posterolateral branch. I attempted to deliver the lead [facility] [address] [place] [address] PROCEDURE REPORT Name: TRISH LEE Room #: 202-P DIS IN M.R.#: [id number] Admission: 12/10/19 Attend Phys: Harpal Ross MD Discharge: 12/18/19 Date of : 54 Report #: [id number] using this 9-Canadian short sheath, but could not get into the posterolateral target vessel. Of note, the patient did have tortuosity at the coronary sinus about one-third in and the coronary sinus guide sheath was essentially hub at the subclavian site due to his large heart. Therefore, I did a transition over to a 10-Canadian St. Reynaldo sheath and used a Medtronic inner sheath to deliver the lead into this vessel. I was able to split all 3 sheaths with no issues. LV lead had adequate pacing and sensing thresholds. Leads were sutured to the prepectoral fascia. Device was connected and there was adequate pacing and sensing thresholds. The pocket was irrigated with vancomycin. The pocket was closed in 2 layers using 2-0 for the deep layer and 3-0 for the mid layer and surgical glue was placed to outer skin layer. The patient awoke neurologically and hemodynamically intact. No complications and there were no significant bleeding. The implanted device and leads were Balzo. The generator was a Balzo, model #[id number], serial #[id number]. RV lead was a 6947, 62 cm, serial #[id number] and the LV lead was a 4998, 88 cm, serial #[id number]. RV lead demonstrated R waves of 9 millivolts, pacing impedance of 510 ohms and a pacing threshold of 0.5 volts at 0.5 milliseconds. The LV lead demonstrated pacing impedance of 545 ohms and a pacing threshold of 0.9 volts at 0.5 milliseconds, pacing from LV2-LV3. The device was programmed to the VVIR 70-130 mode. The VT zone was set at 180-220 beats per minute with 3 rounds of bursts followed by 3 rounds of ramp, followed by max output shocks. VF zone was set at greater than 220 beats per minute with ATP while charging followed by max output shocks. CONCLUSIONS: 1. Successful BiV ICD implantation. 2. Satisfactory right ventricular and left ventricular pacing and sensing thresholds. <ELECTRONICALLY SIGNED> By: Gary Tejada MD 12/25/19 1352 1143 135 Gary Tejada MD /nt
== END 2019-12-18 14:15 | disposition home or self-care (01) | DRG 265 ==
LOC: ER 10:27 → EROBS 12:57 → 3W 12:57 → 2N 12-14 13:43
PROVIDERS: Internal Medicine Cardiovascular Disease; Internal Medicine Pulmonary Disease; Nurse Practitioner; Physician Assistant; ADMIT Internal Medicine; ATTEND Internal Medicine
PROC: 5A09357 Assistance with Respiratory Ventilation, Less than 24 Consecutive Hours, Continuous Positive Airway Pressure (ICD-10-PCS; principal; 2019-12-12)
PROC: B41G1ZZ Fluoroscopy of Left Lower Extremity Arteries using Low Osmolar Contrast (ICD-10-PCS; 2019-12-14)
PROC: 4A023N8 Measurement of Cardiac Sampling and Pressure, Bilateral, Percutaneous Approach (ICD-10-PCS; 2019-12-14)
PROC: B2111ZZ Fluoroscopy of Multiple Coronary Arteries using Low Osmolar Contrast (ICD-10-PCS; 2019-12-14)
PROC: 5A09357 Assistance with Respiratory Ventilation, Less than 24 Consecutive Hours, Continuous Positive Airway Pressure (ICD-10-PCS; 2019-12-14)
PROC: B2151ZZ Fluoroscopy of Left Heart using Low Osmolar Contrast (ICD-10-PCS; 2019-12-14)
PROC: 0W993ZZ Drainage of Right Pleural Cavity, Percutaneous Approach (ICD-10-PCS; 2019-12-14)
PROC: 5A09357 Assistance with Respiratory Ventilation, Less than 24 Consecutive Hours, Continuous Positive Airway Pressure (ICD-10-PCS; 2019-12-15)
PROC: 0JH60FZ Insertion of Subcutaneous Defibrillator Lead into Chest Subcutaneous Tissue and Fascia, Open Approach (ICD-10-PCS; 2019-12-15)
PROC: 02WA3MZ Revision of Cardiac Lead in Heart, Percutaneous Approach (ICD-10-PCS; 2019-12-16)
PROC: 4B02XTZ Measurement of Cardiac Defibrillator, External Approach (ICD-10-PCS; 2019-12-16)
PROC: 5A09357 Assistance with Respiratory Ventilation, Less than 24 Consecutive Hours, Continuous Positive Airway Pressure (ICD-10-PCS; 2019-12-17)
DX: I11.0 Hypertensive heart disease with heart failure (principal); J18.9 Pneumonia, unspecified organism; R65.11 Systemic inflammatory response syndrome (SIRS) of non-infectious origin with acute organ dysfunction; J96.21 Acute and chronic respiratory failure with hypoxia; J96.22 Acute and chronic respiratory failure with hypercapnia; J44.1 Chronic obstructive pulmonary disease with (acute) exacerbation; J91.8 Pleural effusion in other conditions classified elsewhere; I48.21 Permanent atrial fibrillation; T82.128A Displacement of other cardiac electronic device, initial encounter; Z68.42 Body mass index [BMI] 45.0-49.9, adult; I50.43 Acute on chronic combined systolic (congestive) and diastolic (congestive) heart failure; I42.8 Other cardiomyopathies; I48.0 Paroxysmal atrial fibrillation; Z20.828 Contact with and (suspected) exposure to other viral communicable diseases; E78.00 Pure hypercholesterolemia, unspecified; E11.9 Type 2 diabetes mellitus without complications; F17.210 Nicotine dependence, cigarettes, uncomplicated; E66.01 Morbid (severe) obesity due to excess calories; M10.9 Gout, unspecified; I44.7 Left bundle-branch block, unspecified; E78.5 Hyperlipidemia, unspecified; G47.33 Obstructive sleep apnea (adult) (pediatric); I27.20 Pulmonary hypertension, unspecified; I25.10 Atherosclerotic heart disease of native coronary artery without angina pectoris; Z79.01 Long term (current) use of anticoagulants; Z90.49 Acquired absence of other specified parts of digestive tract; Z71.6 Tobacco abuse counseling; Y83.8 Other surgical procedures as the cause of abnormal reaction of the patient, or of later complication, without mention of misadventure at the time of the procedure; Y92.230 Patient room in hospital as the place of occurrence of the external cause

== ENCOUNTER → 2019-12-22 | Outpatient (CLI) | payer OTHER ==
[~2019-12-22] MED LIST changes: +CEFDINIR300 MG PO; +COZAAR 25 MG TA25 MG PO; +PREDNISONE 20 M20 M1 PO; +SPIRONOLACTONE25 M1 PO
== END ==
LOC: SJCVC 08:29
PROVIDERS: ATTEND Internal Medicine Cardiovascular Disease
DX: I42.9 Cardiomyopathy, unspecified (principal); I11.0 Hypertensive heart disease with heart failure; I50.9 Heart failure, unspecified; I48.91 Unspecified atrial fibrillation; Z79.899 Other long term (current) drug therapy; Z87.891 Personal history of nicotine dependence

== ENCOUNTER → 2019-12-24 | Outpatient (CLI) | payer OTHER | LOC: SJCVC 13:21 | PROVIDERS: ATTEND Internal Medicine Cardiovascular Disease | DX: R94.31 Abnormal electrocardiogram [ECG] [EKG] (principal); I45.4 Nonspecific intraventricular block; I42.9 Cardiomyopathy, unspecified; I48.91 Unspecified atrial fibrillation; E78.00 Pure hypercholesterolemia, unspecified; I11.0 Hypertensive heart disease with heart failure; I50.9 Heart failure, unspecified; E11.9 Type 2 diabetes mellitus without complications; Z79.899 Other long term (current) drug therapy; Z87.891 Personal history of nicotine dependence ==

== ENCOUNTER → 2020-01-07 | Outpatient (CLI) | payer OTHER | LOC: SJCVC 08:54 | PROVIDERS: ATTEND Internal Medicine Cardiovascular Disease | DX: I50.9 Heart failure, unspecified (principal); I25.5 Ischemic cardiomyopathy ==

== ENCOUNTER → 2020-01-14 | Outpatient (CLI) | payer OTHER | LOC: SJCVC 10:11 | PROVIDERS: ATTEND Internal Medicine Cardiovascular Disease | DX: I48.91 Unspecified atrial fibrillation (principal); R94.31 Abnormal electrocardiogram [ECG] [EKG]; I45.4 Nonspecific intraventricular block; I25.5 Ischemic cardiomyopathy; I10 Essential (primary) hypertension; E78.00 Pure hypercholesterolemia, unspecified; E11.9 Type 2 diabetes mellitus without complications; Z95.810 Presence of automatic (implantable) cardiac defibrillator; Z72.0 Tobacco use; Z79.899 Other long term (current) drug therapy ==

== ENCOUNTER → 2020-03-29 | Outpatient (CLI) | payer OTHER | LOC: SJCVC 13:36 | PROVIDERS: ATTEND Internal Medicine Cardiovascular Disease | DX: I45.4 Nonspecific intraventricular block (principal); R94.31 Abnormal electrocardiogram [ECG] [EKG]; I48.21 Permanent atrial fibrillation; I11.0 Hypertensive heart disease with heart failure; I50.22 Chronic systolic (congestive) heart failure; J44.9 Chronic obstructive pulmonary disease, unspecified; E11.9 Type 2 diabetes mellitus without complications; I42.9 Cardiomyopathy, unspecified; E78.00 Pure hypercholesterolemia, unspecified; R60.9 Edema, unspecified; E66.9 Obesity, unspecified; Z87.891 Personal history of nicotine dependence; Z95.810 Presence of automatic (implantable) cardiac defibrillator; Z79.84 Long term (current) use of oral hypoglycemic drugs; Z79.899 Other long term (current) drug therapy ==

== ENCOUNTER → 2020-04-04 | Outpatient (CLI) | payer OTHER | LOC: LAB 07:41 | PROVIDERS: ATTEND Internal Medicine Cardiovascular Disease | DX: Z01.812 Encounter for preprocedural laboratory examination (principal); Z20.822 Contact with and (suspected) exposure to COVID-19 ==

== ENCOUNTER → 2020-04-08 | Outpatient (CLI) | payer OTHER ==
[~2020-04-08] VITALS: Ht 180.3 cm; Wt 137.3 kg
[~2020-04-08] MED LIST changes: +ALLOPURINOL 30300 M1 PO; +CARVEDILOL25 MG PO; +GLUCOPHAGE1000 MG PO; +LISINOPRIL20 MG PO
[2020-04-08 08:40] VITALS: BP 136/89
[2020-04-08 08:40] LABS: ABSOLUTE NEUTROPHILS 6.9 thou/uL (1.4-8.2); BASOPHILS 0.9 % (0.0-2.0); EOSINOPHILS 2.4 % (0.0-3.0); HEMATOCRIT 39.3 % (42.0-52.0); HEMOGLOBIN 12.1 gm/dL (14.0-18.0); LYMPHOCYTES 15.2 % (24.0-44.0); MCH 27.9 pg (26.0-34.0); MCHC 30.9 g/dL (28.0-37.0); MCV 90.2 fL (80.0-100.0); MONOCYTES 8.8 % (1.0-8.0); PLATELET COUNT 399 thou/uL (150-400); POLYS 72.7 % (36.0-66.0); RBC 4.35 mil/uL (4.50-6.00); RDW 18.4 % (10.5-14.5); WBC 9.4 thou/uL (4.0-11.0)
[2020-04-08 08:47] LABS: CALCIUM 9.7 mg/dL (8.5-10.1); CREATININE 1.4 mg/dL (0.7-1.3); POTASSIUM 4.3 mmol/L (3.5-5.1)
[2020-04-08 08:51] LABS: APTT 28.1 Seconds (24.5-32.8); INR 1.1; PROTIME 11.1 Seconds (9.3-11.4)
[2020-04-08 08:52] LABS: TOTAL BILIRUBIN 0.4 mg/dL (0.2-1.0); TOTAL PROTEIN 7.6 g/dL (6.4-8.2)
[2020-04-08 10:18] LABS: ANISOCYTOSIS 2+
--- NOTE | 2020-04-11 15:56 | P ---
[facility] [place] [address] PROCEDURE REPORT Name: TRISH LEE Room #: REG JUDSON LozadaBobAlbina.#: [id number] Admission: 04/08/20 Attend Phys: Gary Tejada MD Discharge: Date of : 54 Report #: [id number] THIS REPORT FOR: cc: Alexandre Ritchie James A. DO Couchonnal, Luis F. MD ~ DATE OF SERVICE: 04/08/2020 PREOPERATIVE DIAGNOSES: 1. Nonischemic cardiomyopathy. 2. Permanent atrial fibrillation. 3. Left bundle-branch block. 4. [place] [employer] functional class 2-3 heart failure symptoms. 5. Medtronic Bi-V ICD implantation. PROCEDURES PERFORMED: Today: 1. AV node ablation, CPT code 85242. 2. Preprocedural ICD programming, CPT code 72693. 3. Post-procedure ICD reprogramming, CPT code 87578. HISTORY: The patient is a 69-year-old with history of nonischemic cardiomyopathy, permanent atrial fibrillation, status post BiV ICD, who continues to have atrial fibrillation with rapid ventricular response and decreased biventricular pacing. He is here for AV node ablation. DESCRIPTION OF PROCEDURE: The patient was brought to EP laboratory in fasting and sedated state, prepped and draped in a sterile fashion. He was placed on BiPAP due to his obesity. Next, I injected lidocaine in the right groin and obtained access to the right femoral vein x 1 and initially placing an 8-Monegasque short sheath. I then transitioning over to a SR0 sheath and then I placed an 8 mm ablation catheter into the right atrium. Pre AV node ablation, I did reprogram his ICD. I decreased his ventricular rate down to the VVI 40 and turned off his ICD therapies. Next, ablation was performed at 70 brewster and 60 degrees. Of note, I did see a His signal. Ablation here resulted in slowing, but did not result in termination. I performed a significant amount of ablation and worked my way up from the slow pathway region up to where I thought the AV node would be. Eventually, I found a spot where there was an AV block and I was able to ablate him down to a ventricular rate of 40 beats per minute. We monitored for a period of 20 minutes and the patient had a slow underlying rhythm of 30-40 beats per minute. His device was re-interrogated and found to be functioning normally and I reprogrammed his device to VVIR 90 and therapies were reenabled. The procedure was without complications and the patient awoke neurologically and hemodynamically intact. CONCLUSIONS: [address] [address] PROCEDURE REPORT Name: TRISH LEE Room #: REG JUDSON Lam#: [id number] Admission: 04/08/20 Attend Phys: Gary Tejada MD Discharge: Date of : 54 Report #: [id number] 1. Successful AV node ablation. 2. Successful pre and post-procedure ICD reprogramming. <ELECTRONICALLY SIGNED> By: Gary Tejada MD 04/11/20 1556 1335 1430 Gary Tejada MD /nt
== END ==
LOC: CATH 07:26
PROVIDERS: ATTEND Internal Medicine Cardiovascular Disease
DX: I48.21 Permanent atrial fibrillation (principal); Z79.01 Long term (current) use of anticoagulants; I42.8 Other cardiomyopathies; I44.7 Left bundle-branch block, unspecified
CPT/HCPCS: 62110; 62900; 70005

== ENCOUNTER → 2020-07-07 | Outpatient (CLI) | payer OTHER | LOC: SJCVC 13:55 | PROVIDERS: ATTEND Internal Medicine Cardiovascular Disease | DX: I42.8 Other cardiomyopathies (principal); I48.21 Permanent atrial fibrillation; I44.7 Left bundle-branch block, unspecified; E66.9 Obesity, unspecified; G47.33 Obstructive sleep apnea (adult) (pediatric); I11.0 Hypertensive heart disease with heart failure; I50.9 Heart failure, unspecified; I27.20 Pulmonary hypertension, unspecified; J44.9 Chronic obstructive pulmonary disease, unspecified; I25.10 Atherosclerotic heart disease of native coronary artery without angina pectoris; E11.9 Type 2 diabetes mellitus without complications; Z95.0 Presence of cardiac pacemaker; Z98.890 Other specified postprocedural states; Z90.49 Acquired absence of other specified parts of digestive tract; Z79.84 Long term (current) use of oral hypoglycemic drugs; Z79.899 Other long term (current) drug therapy; Z87.891 Personal history of nicotine dependence ==

== ENCOUNTER → 2020-09-27 | Outpatient (CLI) | payer OTHER | LOC: SJCVCIMAG 08:17 | PROVIDERS: ATTEND Internal Medicine Cardiovascular Disease | DX: I08.3 Combined rheumatic disorders of mitral, aortic and tricuspid valves (principal); I77.819 Aortic ectasia, unspecified site; R94.31 Abnormal electrocardiogram [ECG] [EKG]; I45.4 Nonspecific intraventricular block; I48.0 Paroxysmal atrial fibrillation; I42.9 Cardiomyopathy, unspecified; E78.00 Pure hypercholesterolemia, unspecified; E11.9 Type 2 diabetes mellitus without complications; I11.0 Hypertensive heart disease with heart failure; I50.9 Heart failure, unspecified; J44.9 Chronic obstructive pulmonary disease, unspecified; I25.10 Atherosclerotic heart disease of native coronary artery without angina pectoris; E66.9 Obesity, unspecified; Z90.49 Acquired absence of other specified parts of digestive tract; Z98.890 Other specified postprocedural states; Z95.810 Presence of automatic (implantable) cardiac defibrillator; Z79.84 Long term (current) use of oral hypoglycemic drugs; Z79.899 Other long term (current) drug therapy ==

== ENCOUNTER → 2020-09-27 | Outpatient (CLI) | payer OTHER | LOC: CAT 10:47 | PROVIDERS: ATTEND Family Medicine | DX: K57.30 Diverticulosis of large intestine without perforation or abscess without bleeding (principal); I71.4 Abdominal aortic aneurysm, without rupture; K76.89 Other specified diseases of liver; Z90.49 Acquired absence of other specified parts of digestive tract ==

== ENCOUNTER → 2020-10-27 | Outpatient (CLI) | payer OTHER ==
[~2020-10-27] MED LIST changes: -GLUCOPHAGE1000 MG PO; +METFORMIN HCL500 MG PO; +NORCO5 PO
== END ==
LOC: LAB 09:08
PROVIDERS: ATTEND Student in an Organized Health Care Education/Training Program
DX: Z01.812 Encounter for preprocedural laboratory examination (principal); Z20.822 Contact with and (suspected) exposure to COVID-19

== ENCOUNTER 2020-10-28 06:14 | Day surgery (SDC) | payer OTHER ==
[~2020-10-28] VITALS: Ht 180.3 cm; Wt 132.0 kg
--- NOTE | ~2020-10-28 | O ---
[facility] Roberto [place] [address] OPERATIVE REPORT Name: TRISH LEE Room #: DEP [facility].#: [id number] Admission: 10/28/20 Attend Phys: Ritesh Hirsch MD Discharge: 10/28/20 Date of : 54 Report #: [id number] THIS REPORT FOR: cc: Alexandre Ritchie James A. DO Joseph, Sigi P. MD ~ DATE OF SERVICE: 10/28/2020 PREOPERATIVE DIAGNOSIS: Mesenteric lymphadenopathy. POSTOPERATIVE DIAGNOSIS: Mesenteric lymphadenopathy. OPERATIVE PROCEDURE DONE: Laparoscopic mesenteric lymph node biopsy. OPERATING SURGEON: Ritesh Hirsch MD TANK STORAGE SUPERVISOR: Rene. INDICATIONS FOR THE PROCEDURE: The patient is a 70-year-old male who presented with complaints of nonspecific abdominal pain. CT scan that was done showed features of mesenteric lymphadenopathy. The patient was advised laparoscopic biopsy of the same. The patient showed understanding and agreed to proceed. PROCEDURE IN DETAIL: After explaining to the patient in detail, an informed consent was obtained. The patient was identified in the preoperative holding area. The patient was transferred to the operating room and was placed in supine position. Sequential compression devices were placed for DVT prophylaxis. Preoperative antibiotics were given. Step after induction of anesthesia, the abdomen was prepped and draped in a sterile fashion. Through a right upper quadrant 1 cm incision and using Optiview technique, peritoneal cavity was entered and pneumoperitoneum was created. Thereafter, under direct vision, another 5 mm trocar was placed in the right lower quadrant, another 8 mm trocar was placed in the right paraumbilical region. On initial inspection, I did not see any obvious features to suggest a metastatic disease. On inspection of the mesentery, there was 1 lymph node that appeared slightly prominent and further inspection did not reveal any significant lymph nodes that could easily be biopsied. I ran the bowel proximally and distally a couple of times to identify any potential other lymph nodes. The most prominent lymph node in the mid mesentery was then dissected using hook electrocautery and was sent for histopathology. Absolute hemostasis was ensured. The abdomen was then deflated. Incisions were then closed with 4-0 Monocryl. Dermabond was applied. The patient was stable at the end of the procedure. The patient was awoken from anesthesia and was transferred to the recovery room in stable condition. Estimated blood loss was minimal. CONDITION: The patient is stable. [address] [address] OPERATIVE REPORT Name: TRISH LEE Room #: DEP [facility] Genaro#: [id number] Admission: 10/28/20 Attend Phys: Ritesh Hirsch MD Discharge: 10/28/20 Date of : 54 Report #: [id number] FLUIDS: Given per Anesthesia notes. SPECIMEN SENT: Excised lymph node. COMPLICATIONS: None. ANESTHESIA: General anesthesia. By: 0708 0734 Ritesh Hirsch MD /nt
[~2020-10-28 06:14] MED LIST changes: -NORCO5 PO
[2020-10-28 07:07] LABS: CALCIUM 8.9 mg/dL (8.5-10.1); CREATININE 1.3 mg/dL (0.7-1.3); POTASSIUM 4.8 mmol/L (3.5-5.1)
[2020-10-28 08:08] VITALS: BP 128/79
[2020-10-28] MEDS ORDERED: NORCO5 PO (09:09)
[2020-10-28 09:50] VITALS: BP 128/79
--- NOTE | 2020-11-04 10:07 | PATH ---
[facility] [address] [place] [address] PATHOLOGY RPT PROCEDURE Name: ROSATRISH LEE Room #: DEP [facility] M.R.#: [id number] Admission: 10/28/20 Date of : 54 Discharge: 10/28/20 Report #: [id number] Path Case #: [id number] [facility] Accession Number: [id number] . 01 Material submitted: . lymph node - MESENTERIC LYMPH NODE BIOPSY. Modifiers: mesenteric . 01 Clinical history: . BIOPSY LYMPH NODE LAPAROSCOPY- DIAGNOSTIC MESENTERIC LYMPHADENOPATHY . 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 (SCA:elliott; 11/02/2020) MBR 11/03/2020 1810 Local . 02 Comment: Sections of lymph node demonstrate complete elsa architectural effacement by a lymphoma. The lymphoma cells are arranged in an entirely follicular distribution. These neoplastic follicles are comprised predominantly of small cleaved cells (centrocytes) with fewer large non-cleaved cells (centroblasts), the latter of which comprises less than 15 cells per high-power field (grade 1-2/3). . Immunohistochemical stains were performed on block A2 which reveals that the lymphoma cells are positive for CD20, CD10, BCL-2, BCL-6, and PAX-5. The lymphoma cells are negative for CD3 and CD5 (which highlight parafollicular T-cells), negative for cyclin D1, and MUM-1. CD68 highlights scattered sinus histiocytes. CD23 highlights intact follicular dendritic meshwork. . In situ hybridization stains performed on block A2 highlights plasma cells with a polytypic pattern. . This case was co-reviewed by Dr. Nash who agrees with the above diagnosis, on 11/02/2020. . The findings have been communicated to Dr. Ritesh Hirsch on 11/02/2020 at 1600. . (SCA:elliott; 11/02/2020) . 02 Diagnosis provided by: . Suman Estes DO, Pathologist [address] [address] PATHOLOGY RPT PROCEDURE Name: TRISH FRASER Room #: DEP [facility] Genaro#: [id number] Admission: 10/28/20 Date of : 54 Discharge: 10/28/20 Report #: [id number] Path Case #: [id number] I- [id number] . 03 Electronically signed: . Suman Estes DO, Pathologist NPI- [id number] . 01 Gross description: . The specimen is received in formalin, labeled "Fraser, Trish and mesenteric lymph node biopsy". It consists of a kaplan-yellow, probable lymph node measuring 2.1 x 2.0 x 1.3 cm. Sectioning reveals kaplan-yellow homogenous is cut surfaces. The specimen is entirely submitted in A1-A2. (MRF; 10/28/2020) MFE/MFE 10/28/2020 1521 Local . 02 Pathologist provided ICD-10: C82.03 . 02 CPT . 236205, E43796, I22931 Specimen Comment: A courtesy copy of this report has been sent to [phone] Specimen Comment: [phone] Specimen Comment: Report sent to / DR WHITE Specimen Comment: Report sent to Specimen Comment: A duplicate report has been generated due to demographic updates. Performed at: 01 [facility] [address] [id number] MD Luis Haro MD Phone: [phone] Performed at: 02 [facility] [address] [id number] MD Yudi Javier MD Phone: [phone] Performed at: 03 [facility] [address] [id number] MD Gonzalo Tucker MD Phone: [phone]
== END 2020-10-28 10:55 | disposition home or self-care (01) ==
LOC: OR → TBA 06:14 → OR 06:14
PROVIDERS: ATTEND Surgery
DX: C82.03 Follicular lymphoma grade I, intra-abdominal lymph nodes (principal); I11.0 Hypertensive heart disease with heart failure; I50.9 Heart failure, unspecified; E11.9 Type 2 diabetes mellitus without complications; I48.91 Unspecified atrial fibrillation; E03.9 Hypothyroidism, unspecified; J43.9 Emphysema, unspecified; G47.30 Sleep apnea, unspecified; Z98.890 Other specified postprocedural states; Z79.899 Other long term (current) drug therapy; Z90.49 Acquired absence of other specified parts of digestive tract; Z79.01 Long term (current) use of anticoagulants
CPT/HCPCS: 50010; 50101; 50411; 50555; 52265; 52266; 53307; 54022; 54118; 56525; 56526; 57257; 58574; 58587; 58911; 62110; 62900; 70005

== ENCOUNTER → 2021-03-09 | Outpatient (CLI) | payer OTHER ==
[~2021-03-09] MED LIST changes: +NORCO5 PO
== END ==
LOC: SJCVC 13:07
PROVIDERS: ATTEND Internal Medicine Cardiovascular Disease
DX: R94.31 Abnormal electrocardiogram [ECG] [EKG] (principal); I45.4 Nonspecific intraventricular block; N28.9 Disorder of kidney and ureter, unspecified; I21.4 Non-ST elevation (NSTEMI) myocardial infarction; I48.0 Paroxysmal atrial fibrillation; I11.0 Hypertensive heart disease with heart failure; I50.9 Heart failure, unspecified; J44.9 Chronic obstructive pulmonary disease, unspecified; E11.9 Type 2 diabetes mellitus without complications; E78.5 Hyperlipidemia, unspecified; I25.10 Atherosclerotic heart disease of native coronary artery without angina pectoris; E66.09 Other obesity due to excess calories; G47.30 Sleep apnea, unspecified; Z79.01 Long term (current) use of anticoagulants; Z79.899 Other long term (current) drug therapy; Z87.891 Personal history of nicotine dependence

== ENCOUNTER 2021-03-30 13:53 | Inpatient (IN) | payer OTHER ==
[~2021-03-30] VITALS: Ht 180.3 cm; Wt 128.8 kg
[~2021-03-30 13:53] MED LIST changes: -CLOPIDOGREL75 MG PO; -OXYCODONE HCL 55 MG PO; -WARFARIN SODIUM3 MG PO
[2021-03-30 13:57] VITALS: BP 105/56
[2021-03-30 14:29] LABS: EOSINOPHILS 3.6 % (0.0-3.0); HEMATOCRIT 30.2 % (42.0-52.0); HEMOGLOBIN 8.7 gm/dL (14.0-18.0); LYMPHOCYTES 22.8 % (24.0-44.0); MCH 25.6 pg (26.0-34.0); MCHC 28.9 g/dL (28.0-37.0); MCV 88.7 fL (80.0-100.0); MONOCYTES 13.1 % (1.0-8.0); PLATELET COUNT 350 thou/uL (150-400); POLYS 58.5 % (36.0-66.0); RDW 19.5 % (10.5-14.5); WBC 6.9 thou/uL (4.0-11.0)
[2021-03-30 14:37] LABS: CALCIUM 8.9 mg/dL (8.5-10.1); CREATININE 2.2 mg/dL (0.7-1.3); POTASSIUM 4.7 mmol/L (3.5-5.1)
[2021-03-30 14:45] LABS: BE(vivo) 0.3 mmol/L (-2 to +3); PCO2 47.6 mmHg (35.0-45.0); PO2 55.8 mmHg (80.0-100.0); pH 7.356 (7.360-7.450); sO2 87.6 % (92.0-98.0)
[2021-03-30 14:47] LABS: ALBUMIN 3.2 g/dL (3.4-5.0); TOTAL BILIRUBIN 1.2 mg/dL (0.2-1.0); TOTAL PROTEIN 6.7 g/dL (6.4-8.2)
[2021-03-30 15:08] LABS: MAGNESIUM 1.6 mg/dL (1.8-2.4); PHOSPHORUS 4.2 mg/dL (2.6-4.7)
--- NOTE | 2021-03-30 15:41 | EKG ---
[place] [address] [facility] [place] [address] ELECTROCARDIOGRAM REPORT Name: TRISH LEE [id number] Admission: 03/30/21 Attend Phys: Discharge: Date of : 54 Report #: [id number] [facility] ED Test Date: 2021-03-30 Test Time: 14:07:08 Pat Name: TRISH LEE Department: Room: Gender: M Computer Architect: CT : 1950 Requested By: Adithya Young Order Number: [id number] MD: Jamie Chung Measurements Intervals [place] Rate: 65 P: -35 [place]: 88 QRS: 263 QRSD: 169 T: 95 QT: 480 QTc: 500 Interpretive Statements Ventricular-paced complexes No further rhythm analysis attempted due to paced rhythm Borderline T abnormalities, lateral leads Compared to ECG 12/14/2019 08:45:07 Atrial fibrillation no longer present Left bundle-branch block no longer present Electronically Signed On 03-30-2021 15:40:47 BAR POINTER by Jamie Chung [email or web address] <ELECTRONICALLY SIGNED> By: Jamie Chung MD, [facility] 03/30/21 1540 06 06 Jamie Chung MD, [facility] /EPI
[2021-03-30 17:38] VITALS: BP 102/54
[2021-03-31 03:54] LABS: PROTIME 71.8 Seconds (10.5-12.1)
[2021-03-31 04:08] LABS: ALBUMIN 3.1 g/dL (3.4-5.0); CALCIUM 9.1 mg/dL (8.5-10.1); CREATININE 2.5 mg/dL (0.7-1.3); POTASSIUM 5.5 mmol/L (3.5-5.1); TOTAL BILIRUBIN 0.4 mg/dL (0.2-1.0); TOTAL PROTEIN 6.8 g/dL (6.4-8.2)
[2021-03-31 04:10] LABS: ABSOLUTE NEUTROPHILS 2.5 thou/uL (1.4-8.2); BASOPHILS 0.7 % (0.0-2.0); HEMATOCRIT 27.5 % (42.0-52.0); HEMOGLOBIN 8.3 gm/dL (14.0-18.0); MCH 26.3 pg (26.0-34.0); MCHC 30.3 g/dL (28.0-37.0); MCV 86.9 fL (80.0-100.0); MONOCYTES 1.5 % (1.0-8.0); PLATELET COUNT 308 thou/uL (150-400); POLYS 73.8 % (36.0-66.0); RBC 3.17 mil/uL (4.50-6.00); RDW 18.7 % (10.5-14.5); WBC 3.4 thou/uL (4.0-11.0)
[2021-03-31 04:11] LABS: INR 7.24
--- NOTE | 2021-03-31 07:19 | NUR ---
THIS RN ASSUMES CARE OF PT. PT RESTING COMFORTABLY IN BED WITH EYES CLOSED. ED L LIGHT WITHIN REACH. DENIES NEEDS.
[2021-03-31] MEDS ORDERED: CLOPIDOGREL75 MG PO (08:08)
[2021-03-31] MEDS ORDERED: WARFARIN SODIUM3 MG PO (08:08)
[2021-03-31] MEDS ORDERED: OXYCODONE HCL 55 MG PO (08:09)
[2021-03-31 08:34] VITALS: BP 126/70
[2021-03-31 09:05] LABS: CHOLESTEROL 89 mg/dL (<200); HDL CHOLESTEROL 40 mg/dL (>40); LDL CHOLESTEROL 40 mg/dL (<100); TC:HDL 2.2 Ratio (Not establshd); TRIGLYCERIDE 47 mg/dL (<150); VLDL 9 mg/dL (<40)
--- NOTE | 2021-03-31 13:37 | NUR ---
OT AT BEDSIDE.
[2021-03-31 17:04] VITALS: BP 106/63
[2021-03-31 17:29] VITALS: BP 124/67
[2021-03-31 18:35] VITALS: BP 98/60
[2021-03-31 21:48] VITALS: BP 101/69
[2021-04-01 06:12] LABS: HEMATOCRIT 28.8 % (42.0-52.0); HEMOGLOBIN 8.3 gm/dL (14.0-18.0); MCH 25.5 pg (26.0-34.0); RBC 3.27 mil/uL (4.50-6.00); RDW 18.7 % (10.5-14.5); WBC 7.4 thou/uL (4.0-11.0)
[2021-04-01 06:30] LABS: ALBUMIN 3.3 g/dL (3.4-5.0); CREATININE 2.3 mg/dL (0.7-1.3); DIRECT BILIRUBIN 0.3 mg/dL (<0.1-0.2); POTASSIUM 5.7 mmol/L (3.5-5.1); TOTAL BILIRUBIN 0.4 mg/dL (0.2-1.0); TOTAL PROTEIN 6.6 g/dL (6.4-8.2)
[2021-04-01 07:34] VITALS: BP 112/54
[2021-04-01 12:40] VITALS: BP 147/92
--- NOTE | 2021-04-01 14:18 | NUR ---
Assumed care of patient at shift change. Assessment as charted. Medications administered per EMAR. VSS; patient C/O pain relieved by iv fentanyl & not PO Cranks. Blood culture results reported at 1418: Gram + cocci, dermacoccus nishlnoniyanesis. Left message with ID provider answering service. Patient is tolerating PO intake well and voiding well but is still SOA and remains on 2L. Besides pain, patient is in good spirits and denies further needs
[2021-04-01 15:45] VITALS: BP 113/67
[2021-04-01 19:57] VITALS: BP 110/60
[2021-04-02 04:19] VITALS: BP 116/66
--- NOTE | 2021-04-02 04:21 | NUR ---
I AGREE WITH NURSE LESLIE ON THE ASSESSMENT OF THIS PT.
[2021-04-02 06:11] LABS: HEMOGLOBIN 8.3 gm/dL (14.0-18.0)
[2021-04-02 06:17] LABS: HEMATOCRIT 27.9 % (42.0-52.0); MCH 25.8 pg (26.0-34.0); MCHC 29.6 g/dL (28.0-37.0); RBC 3.2 mil/uL (4.50-6.00); RDW 18.9 % (10.5-14.5); WBC 8.3 thou/uL (4.0-11.0)
[2021-04-02 06:36] LABS: ALBUMIN 3.2 g/dL (3.4-5.0); CALCIUM 9.1 mg/dL (8.5-10.1); CREATININE 2.2 mg/dL (0.7-1.3); DIRECT BILIRUBIN 0.3 mg/dL (<0.1-0.2); POTASSIUM 5.3 mmol/L (3.5-5.1); TOTAL BILIRUBIN 0.5 mg/dL (0.2-1.0); TOTAL PROTEIN 6.6 g/dL (6.4-8.2)
[2021-04-02 08:12] VITALS: BP 123/66
[2021-04-02 09:41] LABS: PROTIME 19.2 Seconds (10.5-12.1)
[2021-04-02 09:45] LABS: INR 1.81
[2021-04-02 16:41] VITALS: BP 131/65
--- NOTE | 2021-04-02 18:33 | NUR ---
Patient is sat up in the chair, a few time today, pain medication given prn. call light within reach, will continous monitoring.
[2021-04-02 20:00] VITALS: BP 133/60
--- NOTE | 2021-04-03 03:51 | NUR ---
PT PULLED OUT PIV AND MODERATE AMOUNT OF BLEEDING. PRESSURE HELD AND ARM HELD ABOVE LEVEL OF HEART AND BLEEDING SUBSIDED. PRESSURE DRESSING APPLIED. WHEN ASKED ABOUT THE REMOVAL PT DENIED AND SAID HE DIDNT KNOW HOW IT HAPPENED. PT CLEANED UP. MEDS GIVEN PER MAR. NO INSULIN REQUIRED. PRN NORCO GIVEN DESPITE PTS HESITATION. ATTEMPTED TO REINSERT PIV X1 AND BLEEDING OCCURED, PRESSURE HELD, PRESSURE DRESSING APPLIED. WILL TRY AGAIN LATER PER PTS REQUEST. SPOKE WITH PTS SON AND PROVIDED UPDATES, SON VERBALIZED APPRECIATION. ALL NEEDS MET, HOURLY ROUNDING CONTINUING CALL LIGHT IN REACH
[2021-04-03 05:00] VITALS: BP 125/79
--- NOTE | 2021-04-03 06:31 | NUR ---
NOTIFIED HORACE MOHAMUD PT PULLED OUT HIS IV AND BLED QUITE A LOT ACCORDING TO MELI LESLIE. CBC AND BMP ORDERED. 20 PLACED L FA.
[2021-04-03 06:54] LABS: BASOPHILS 0.2 % (0.0-2.0); HEMATOCRIT 27.8 % (42.0-52.0); HEMOGLOBIN 8.2 gm/dL (14.0-18.0); LYMPHOCYTES 7.8 % (24.0-44.0); MCH 25.6 pg (26.0-34.0); MCHC 29.5 g/dL (28.0-37.0); MCV 86.8 fL (80.0-100.0); MONOCYTES 4.6 % (1.0-8.0); PLATELET COUNT 274 thou/uL (150-400); POLYS 87.4 % (36.0-66.0); RBC 3.21 mil/uL (4.50-6.00); RDW 18.9 % (10.5-14.5)
[2021-04-03 07:07] LABS: ALBUMIN 3.3 g/dL (3.4-5.0); CALCIUM 9.2 mg/dL (8.5-10.1); DIRECT BILIRUBIN 0.4 mg/dL (<0.1-0.2); PHOSPHORUS 3.9 mg/dL (2.6-4.7); POTASSIUM 5.2 mmol/L (3.5-5.1); TOTAL BILIRUBIN 0.6 mg/dL (0.2-1.0); TOTAL PROTEIN 6.2 g/dL (6.4-8.2)
[2021-04-03 07:40] VITALS: BP 116/68
[2021-04-03 08:30] LABS: ANISOCYTOSIS 1+
--- NOTE | 2021-04-03 10:00 | NUR ---
ORDERS FOR EVAL AND TREAT. OBSERVED Pt STAND AND AMBULATE IN ROOM WITHOUT DIFFICULTY. Pt STATES HE DOESN'T FEEL WEAK OR OFF BALANCE. Pt DECLINING A FORMAL P.T. EVAL BUT APPEARS SAFE FOR HOME WHENEVER MEDICALLY CLEAR
[2021-04-03 11:52] VITALS: BP 129/72
--- NOTE | 2021-04-03 11:57 | NUR ---
PT ADMITTED RELATED TO CHF, COVID, AND ARF. CM REVIEWED CHART AND SPOKE WITH CARE TEAM. CM ATTEMTPED PC TO PT'S IN ROOM WIHT NO ANSWER. CM CALLED AND SPOKE WITH PT'S SON TRISH LEE . HE INDICATED THAT PT HAD BEEN LIVING WITH HIM AND HIS FAMILY IN A HOUSE [employer]. HE INDICATED THERE ARE 2 STEPS TO ENTER AND 6 STEPS TO THE BASEMENT WHERE PT HAD BEEN STAYING. 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 PT HAS A CPAP FOR HOME USE NO HOME O2. PT'S PCP IS DR. LUIS WHITE AND SHIM PLUG CUTTER IS DR. FRANKS. SON INDICATED THAT PT HAD BEEN AT [place] FROM JAN 27 TO Feb AND HAD DONE ACUTE INPATIENT REHAB THERE PRIOR TO DC. HE IS AGREEABLE TO POST ACUTE CARE STAY. SON REPORTED THAT PT IS MORE CONFUSED PT HAD CALLED SON 20 TIMES YESTERDAY THINKING HE WAS AT HOME. NURSE IS AWARE AND AGREEABLE ABOUT CONFUSION PT HAD PULLED OUT IV 3X'S. CM TO PROVIDE SNF LIST FOR REVIEW. CM FOLLOWING REGARDING DC PLANNING.
[2021-04-03 13:50] VITALS: BP 116/68
[2021-04-03 15:59] VITALS: BP 146/89
--- NOTE | 2021-04-03 17:19 | HC ---
[facility] [place] [address] CONSULTATION Name: TRISH LEE Room #: 452- ADM IN M.R.#: [id number] Admission: 03/30/21 Attend Phys: Jose E Gaxiola MD Discharge: Date of : 54 Report #: [id number] THIS REPORT FOR: cc: Alexandre Ritchie James A. DO Geha, Daniel J. MD ~ DATE OF SERVICE: 03/30/2021 INFECTIOUS DISEASE CONSULTATION REASON FOR CONSULTATION: I was asked to evaluate concerning COVID-19 pneumonia. HISTORY OF PRESENT ILLNESS: The patient is a 70-year-old with history of coronary artery disease, status post recent WI along with congestive heart failure. He has an ICD permanent pacemaker in place and he has significant underlying COPD. He continues to smoke cigarettes. He was recently hospitalized at [place] for ischemic heart disease. Congestive heart failure was also documented and was treated. He was seen in Cardiology clinic earlier today and found to be in congestive heart failure or possibly exacerbation of his COPD. He was sent then over to the Emergency Room for further evaluation. He is COVID vaccinated. He was exposed to his grandchildren with COVID. He has not had any fever, chills or sweats. He denies any headache. He has had minimal cough. No pharyngitis symptoms. No anosmia. He has had no nausea, vomiting or diarrhea. He has had peripheral edema. He has had some PND and orthopnea. REVIEW OF SYSTEMS: A 14-point review of system was negative other than what has been described above. ALLERGIES: None known. MEDICATIONS: As noted on his MAR, which were reviewed. PAST MEDICAL HISTORY: Hypertension, hyperlipidemia, diabetes, coronary artery disease, congestive heart failure, COPD, pulmonary hypertension, atrial fibrillation, pacemaker defibrillator, obstructive sleep apnea. FAMILY HISTORY: Coronary artery disease. SOCIAL HISTORY: Smoker of cigarettes. No significant alcohol intake. Lives with his son and grandkids. PHYSICAL EXAMINATION: GENERAL: Afebrile, hemodynamically stable, 1+ anasarca. No palpable adenopathy. SKIN: With xerosis to his lower extremities. [facility] [address] [place] [address] CONSULTATION Name: ROSATRISH CHARLIE Room #: 452-P [facility] IN .R.#: [id number] Admission: 03/30/21 Attend Phys: Jose E Gaxiola MD Discharge: Date of : 54 Report #: [id number] HEENT: Eyes without scleral icterus. Mouth without mucositis. NECK: Supple. LUNGS: Posterior crackles, predominantly in the bases. HEART: Regular, without murmur, gallop or rub. ABDOMEN: Obese, soft, nontender. No hepatosplenomegaly or mass. GENITORECTAL: Examination not performed. EXTREMITIES: With peripheral edema. BACK: Nontender. Mood without anxiety. NEUROLOGIC: Cranial nerves intact. The patient did become more short of breath with lying down flat or with moving in bed, became more short of breath. LABORATORY DATA: Reviewed. MICROBIOLOGY: Reviewed. IMAGING: Chest x-ray reviewed. IMPRESSION: 1. COVID-19 pneumonia with bilateral pulmonary infiltrates. 2. Congestive heart failure. 3. Chronic obstructive pulmonary disease exacerbation. 4. Anemia. 5. Acute kidney injury. 6. Underlying coronary artery disease and hypertension. RECOMMENDATION: We will continue combination therapy with dexamethasone, remdesivir. We will hold on baricitinib or Actemra at this point. Continue management of congestive heart failure and COPD. Check serial laboratory studies and x-rays. Discussed with nursing staff at the bedside. <ELECTRONICALLY SIGNED> By: Alexander Adams MD 04/03/21 [id number] Alexander Adams MD /nt
--- NOTE | 2021-04-03 17:53 | NUR ---
RESUMMED CARE; PATIENT PRESENTS CALM, COOPERATIVE, A&O*4; LEAD MANUFACTURING ENGINEER NOTES A PRODUCTIVE COUGH, PATIENT DENIES COUGHING UP ANY MUCOUS; VSS; AFEBRILE; PATIENT HAS SOME GARBLED SPEECH WHICH CAN BE HARD TO UNDERSTAND AT TIMES; PATIENT COMPLAINTS OF PAIN IN THE CHEST AND BLE; NORCO GIVEN PER MAR; PATIENT VERBALIZED HE PREFERS THE NORCO OVER THE IV PAIN MEDICATIONS BECAUSE "THOSE IV DRUGS JUST MESS ME UP." BLE EDEMA PRESENT +1 TO +2; BRUSING PRESENT TO THE CHEST AREA; PATIENT IS UP ADLIB; LEFT FORARM IV-S.L; ON ROOMAIR; FALL PRECAUTION EDUCATION GIVEN; ENHANCED PRECAUTIONS IN PLACE; PATIENT CONCERN WITH NEEDS IPHONE CHURCH MUSICIAN FOR HIS PHONE TO TALK TO HIS CHILDREN;
[2021-04-03 19:31] VITALS: BP 122/71
[2021-04-04 04:15] VITALS: BP 113/68
[2021-04-04 05:53] LABS: HEMOGLOBIN 8.6 gm/dL (14.0-18.0)
[2021-04-04 05:57] LABS: HEMATOCRIT 29.2 % (42.0-52.0); MCH 25.4 pg (26.0-34.0); MCHC 29.3 g/dL (28.0-37.0); MCV 86.8 fL (80.0-100.0); RBC 3.37 mil/uL (4.50-6.00); RDW 19.3 % (10.5-14.5); WBC 6.3 thou/uL (4.0-11.0)
[2021-04-04 06:27] LABS: ALBUMIN 3.3 g/dL (3.4-5.0); CALCIUM 9.5 mg/dL (8.5-10.1); DIRECT BILIRUBIN 0.5 mg/dL (<0.1-0.2); PHOSPHORUS 4.8 mg/dL (2.5-4.9); POTASSIUM 5.4 mmol/L (3.5-5.1); TOTAL BILIRUBIN 0.9 mg/dL (0.2-1.0); TOTAL PROTEIN 6.7 g/dL (6.4-8.2)
[2021-04-04 07:39] VITALS: BP 123/68
[2021-04-04 09:12] LABS: T-SPOT.TB Negative
--- NOTE | 2021-04-04 09:54 | NUR ---
PATIENT LAYING IN BED NOT INTERSTED IN BREAKFAST ONLY COMPLAINT IS THAT HE IS REALLY SLEEPY AND IS HAVING SOME PAIN ALL OVER HIS BODY. TOOK PO MEDICATIONS WIHTOUT ANY ISSUES AND IV IS STILL INTACT AND FUNCTIONAL. NEW SKIN TEAR ON RIGHT UPPER GLUTE. PATIENT STATES, "I COULDN'T HELP, BUT SCRATCH IT ALL NIGHT." OCCUPATIONAL HEALTH NURSE SUPERVISOR APPLIED BARRIER CREAM ON IT AND WILL CONTINUE TO MONITOR. PAIN MEDICATION WAS OFFERED, BUT DIDN'T WANT AT THE MOMENT OF MORNING MED PASS.
--- NOTE | 2021-04-04 11:53 | NUR ---
YESTERDAY HOSPITALIST HAD INDICATED THAT PT WOULD LIKELY NEED SKILLED POST ACUTE CARE STAY. CM HAD PROVIDED PT AND SON A [facility] SNF LIST FOR REVIEW. SON INDICATED THEY WANTED REFERRALS SENT TO [facility] AND [facility]. CM CALLED BOTH FACILITIES THIS AM TO DETERMINE IF THEY WERE ACCEPTING COVID + PATIENTS AND LEFT VM. PT AND OT HAD BOTH ATTEMPTED TO EVAL PT YESTERDAY AND PT DECLINED FORMAL EVAL INDICATING NOT FEELING WEAK OR UNSTEADY. BOTH PT AND OT INDICATED THEY OBSERVED PT UP AD MIB IN ROOM AND DIDN'T THINK FORMAL EVAL WAS WARRENTED. NURSE THIS AM CONFIRMED PT IS UP AD BRIGID NO DEFICITS. PT IS ON RA. CM NOTIFIED HOSPITALIST. CM AWAITING DIRECTION. PT MAY BE APPROPRIATE TO DC HOME WITH HOME HEALTH ONCE MEDICALLY STABLE. CM FOLLOWING.
[2021-04-04 12:00] VITALS: BP 116/50
[2021-04-04 17:00] VITALS: BP 113/66
[2021-04-04 19:45] VITALS: BP 113/70
--- NOTE | 2021-04-04 22:16 | NUR ---
ASSUMED CARE OF PT AROUND 1900. UPON ASSESSMENT TO WAS LARRY DISCOMBOBULATED. PT ABLE TO ANSWER ORIENTATION QUESTIONS APPROPRIATELY BUT SEEMS VERY GITTERY. PERSONAL HYGEINE & LOTIONING ENCOURAGED- PT REFUSED, POINTED TO MULTIPLE ITEMS ON THE WALL REFURING TO THEM LOTION-PT EDUCATED. PT EXCLUSIVELY REQUESTING IV PAIN MEDICATIONS THIS SHIFT, DUE TO POSSIBLE DELIRIUM REPORTED FROM DAY RN ALTERNATIVE PAIN MANAGEMENT WILL BE ATTEMPTED.
[2021-04-05 04:16] VITALS: BP 125/64
[2021-04-05 07:54] VITALS: BP 115/72
[2021-04-05 08:45] LABS: ALBUMIN 3.3 g/dL (3.4-5.0); DIRECT BILIRUBIN 0.5 mg/dL (<0.1-0.2); PHOSPHORUS 5.6 mg/dL (2.5-4.9); POTASSIUM 5.6 mmol/L (3.5-5.1); TOTAL BILIRUBIN 0.9 mg/dL (0.2-1.0); TOTAL PROTEIN 6.5 g/dL (6.4-8.2)
[2021-04-05 09:08] LABS: HIV ANTIBODY Non Reactive (Non Reactive)
[2021-04-05 13:53] VITALS: BP 115/72
[2021-04-05] MEDS ORDERED: ZINC SULFATE50 MG PO (13:54)
[2021-04-05] MEDS ORDERED: PROAIR HFA8.5 GM INH (13:54)
[2021-04-05] MEDS ORDERED: XARELTO15 MG PO (13:54)
[2021-04-05] MEDS ORDERED: ACETAMINOPHEN325 M1 PO (13:54)
[2021-04-05] MEDS ORDERED: ACEROLA C500 MG PO (13:54)
[2021-04-05] MEDS ORDERED: PEPCID20 MG PO (13:54)
[2021-04-05] MEDS ORDERED: PACERONE 200 M200 M1 PO (13:54)
[2021-04-05] MEDS ORDERED: VITAMIN D325 MC2 PO (13:54)
--- NOTE | 2021-04-05 16:19 | NUR ---
CARE TEAM INDICATED THAT PT IS MEDICALLY STABLE TO DC HOME THIS DAY. CM CALLED PT'S ROOM WITH NO ANSWER. CM CALLED PT'S SON AND HE INDICATED THAT HE IS AWARE AND AGREEABLE WITH PT'S RETURNING HOME WITH HH THIS DAY. CM INDICATED PT, OT, AND NURSING RECOMMENDED. HE INDICATED NO PREFERANCE IN PROVIDERS. CM SENT REFERRAL TO [facility] AND THEY ARE ABLE TO ACCEPT. SON IS AGREEABLE. SON TO PROVIDE TRANSPORT HOME THIS DAY. SON PICKING PT UP AROUND 1630. [facility]. NO OTHER CM INTERVENTION INDICATED. CASE CLOSED.
[2021-04-06] MEDS ORDERED: ALBUTEROL2.5 MG/31 INH (15:34)
== END 2021-04-05 16:34 | disposition home health service (06) | DRG 177 ==
LOC: ER 13:53 → 4W 15:57 → EROBS 15:57 → 4W 03-31 17:31
PROVIDERS: Emergency Medicine; Internal Medicine; Nurse Practitioner Family; Specialist; ADMIT Hospitalist; ATTEND Hospitalist
PROC: XW033E5 Introduction of Remdesivir Anti-infective into Peripheral Vein, Percutaneous Approach, New Technology Group 5 (ICD-10-PCS; principal; 2021-03-31)
DX: U07.1 COVID-19 (principal); J12.82 Pneumonia due to coronavirus disease 2019; I50.23 Acute on chronic systolic (congestive) heart failure; J96.01 Acute respiratory failure with hypoxia; N17.9 Acute kidney failure, unspecified; J44.1 Chronic obstructive pulmonary disease with (acute) exacerbation; J44.0 Chronic obstructive pulmonary disease with (acute) lower respiratory infection; I47.1 Supraventricular tachycardia; I42.8 Other cardiomyopathies; D68.9 Coagulation defect, unspecified; I13.0 Hypertensive heart and chronic kidney disease with heart failure and stage 1 through stage 4 chronic kidney disease, or unspecified chronic kidney disease; E78.5 Hyperlipidemia, unspecified; E78.00 Pure hypercholesterolemia, unspecified; I27.20 Pulmonary hypertension, unspecified; G47.33 Obstructive sleep apnea (adult) (pediatric); D64.9 Anemia, unspecified; I25.10 Atherosclerotic heart disease of native coronary artery without angina pectoris; N18.9 Chronic kidney disease, unspecified; E83.42 Hypomagnesemia; I25.5 Ischemic cardiomyopathy; E11.22 Type 2 diabetes mellitus with diabetic chronic kidney disease; I48.0 Paroxysmal atrial fibrillation; Z79.01 Long term (current) use of anticoagulants; Z71.6 Tobacco abuse counseling; Z90.49 Acquired absence of other specified parts of digestive tract; Z95.810 Presence of automatic (implantable) cardiac defibrillator; Z82.49 Family history of ischemic heart disease and other diseases of the circulatory system; I25.2 Old myocardial infarction; Z87.891 Personal history of nicotine dependence; Z91.14 Patient's other noncompliance with medication regimen; Z95.1 Presence of aortocoronary bypass graft; Z79.899 Other long term (current) drug therapy
CPT/HCPCS: 10045

== ENCOUNTER → 2021-03-30 | Outpatient (CLI) | payer OTHER ==
[~2021-03-30] MED LIST changes: +CLOPIDOGREL75 MG PO; +OXYCODONE HCL 55 MG PO; +WARFARIN SODIUM3 MG PO
== END ==
LOC: SJCVC 12:57
PROVIDERS: ATTEND Internal Medicine Cardiovascular Disease
DX: R94.31 Abnormal electrocardiogram [ECG] [EKG] (principal); I45.4 Nonspecific intraventricular block; I42.9 Cardiomyopathy, unspecified; I48.0 Paroxysmal atrial fibrillation; I10 Essential (primary) hypertension; E78.00 Pure hypercholesterolemia, unspecified; R60.9 Edema, unspecified; J44.1 Chronic obstructive pulmonary disease with (acute) exacerbation; I11.0 Hypertensive heart disease with heart failure; I50.9 Heart failure, unspecified; J44.9 Chronic obstructive pulmonary disease, unspecified; F12.10 Cannabis abuse, uncomplicated; E11.9 Type 2 diabetes mellitus without complications; G47.30 Sleep apnea, unspecified; E78.5 Hyperlipidemia, unspecified; Z79.899 Other long term (current) drug therapy; Z87.891 Personal history of nicotine dependence